=== PATIENT | female | born 1995 ===

== ENCOUNTER 2020-02-06 16:12 | Emergency (ER) | payer MEDICAID, SELFPAY ==
--- NOTE | 2020-02-06 16:34 | ED.URI ---
HPI - URI/Sore Throat General Chief Complaint: Upper Respiratory Symptoms Stated Complaint: Flu like Symptoms Time Seen by Provider: 02/06/20 16:34 Source: patient Mode of arrival: ambulatory Limitations: no limitations History of Present Illness HPI Narrative: States 3 days over in a rhinorrhea/congestion and body aches. No chest pain shortness of breath. No GI symptoms. No fever. MD elicited complaint: rhinorrhea and nasal congestion Onset (ago): day(s) (3) Severity: mild Able to tolerate fluids by mouth: Yes Exacerbating factors: nothing Relieving factors: nothing Associated symptoms: denies other symptoms Treatments prior to arrival: none Related Data Allergies Allergy/AdvReac Type Severity Reaction Status Date / Time No Known Allergies Allergy Unverified 12/01/19 18:45 [No Known Allergies*] Review of Systems Review of Systems: Constitutional: No Weight loss, No Fever, No Chills, No Night Sweats, No Fatigue, No Malaise ENT/Mouth: No Hearing loss, No Ear Pain, + Nasal Congestion, No Sinus Pain, No Hoarseness, No sore throat, + Rhinorrhea, No Swallowing Difficulty Eyes: No Eye Pain, No Swelling, No Redness, No Foreign Body, No Discharge, No Vision Changes Cardiovascular: No Chest Pain, No SOB, No Dyspnea on Exertion, No Orthopnea, No Edema, No Palpitations Respiratory: No Cough, No Sputum, No Wheezing, No Smoke Exposure, No Dyspnea Gastrointestinal: No Nausea, No Vomiting, No Diarrhea, No Constipation, No abdominal Pain, No Hematochezia, No Melena Genitourinary: no irregular bleeding, No Dysuria, No Urinary Frequency, No Hematuria, No Urinary Incontinence Musculoskeletal: No joint pain, No Myalgias, No Joint Swelling Skin: No Skin Lesions, No rash Neuro: No Weakness, No Numbness, No Paresthesias, No Loss of Consciousness, No Dizziness, No Headache Psych: No Social Issues Heme/Lymph: No Bruising, No Bleeding,No Lymphadenopathy Endocrine: No Polyuria, No Polydipsia, No Temperature Intolerance Yes all other systems are reviewed and are negative [facility] Past Medical History Medical History (Updated 02/06/20 @ 16:41 by Curtis Shahid NP) No known health problems Social History Social History Advance Directives: No Advance Directives Information Provided: Yes Physical Exam Vital Signs: Vital Signs: Reviewed Const: General: cooperative and healthy appearing; No acute distress or intoxicated appearing Nutritional Appearance: average body habitus Orientation/consciousness: patient oriented x3 HENMT: Head: Yes normal to inspection Ears: hearing grossly normal bilaterally General nose exam: Nasal discharge present clear Eyes: General: appearance normal, both eyes and all related structures Visual Chaudhari: normal visual chaudhari by confrontation Neck: Neck: Yes normal visual inspection and No tender Thyroid: Thyroid normal Chest: Chest palpation & inspection: normal inspection of the chest Resp: Effort & Inspection: normal respiratory effort Cardio: Jugular venous distension: no JVD GI: Inspection: Yes normal to inspection Percussion: Yes normal to percussion Auscultation: normal bowel sounds : General: Yes no CVA tenderness Back/Spine/Pelvis: Back: no CVA tenderness Skin: General skin exam: no rashes or lesions noted Neuro: General: patient oriented x3 Extrem: General: Yes normal to inspection Course Course Course Narrative: Well nontoxic appearing. Will test for COVID-19. Discharge Plan Discharge Clinical Impression: Upper respiratory infection Patient Disposition: Home, Self-Care Instructions: Viral Syndrome (ED) Additional Instructions: Drink plenty fluids Saltwater gargle Supportive care with Tylenol/Motrin per label instructions We have tested for COVID-19 this may take up to 3-5 days results will call you with results even if negative for positive In the meantime follow the CDC guidelines as discussed Return if any concerns or worsening symptoms Thank you Referrals: ED Physician,Generic [Physician] - 5 days
[2020-02-06 16:35] VITALS: BP 116/67; PULSE 85; TEMP 36.8; O2SAT 98; BMI 35.5
== END 2020-02-06 16:51 | disposition home or self-care (01) ==
PROVIDERS: Nurse Practitioner Primary Care; Emergency Provider Internal Medicine
DX: J06.9 Acute upper respiratory infection, unspecified (principal); M79.10 Myalgia, unspecified site; Z20.828 Contact with and (suspected) exposure to other viral communicable diseases
CPT/HCPCS: 99283; U0003

== ENCOUNTER 2021-03-05 11:54 | Outpatient (REF) | payer MEDICAID, SELFPAY | END 2021-03-05 11:55 | disposition home or self-care (01) | LOC: HO.LAB 11:54 | PROVIDERS: Visit Provider Internal Medicine | DX: Z20.822 Contact with and (suspected) exposure to COVID-19 (principal) | CPT/HCPCS: C9803; U0003; U0005 ==

== ENCOUNTER 2021-07-05 08:51 | Emergency (ER) | payer MEDICAID, SELFPAY ==
--- NOTE | ~2021-07-05 | US_ITS ---
EXAMINATION: US PELVIS CLINICAL INFORMATION: Right adnexal tenderness COMPARISON: Previous CT of the abdomen and pelvis from earlier the same day TECHNIQUE: Ultrasound of the pelvis is performed using both transabdominal and transvaginal transducers along with Doppler. Transvaginal imaging is performed due to inadequate visualization transabdominally. Ovarian Doppler exam with grayscale and color evaluation of the ovaries including waveform spectral analysis was also performed. FINDINGS: The uterus is anteverted and measures 8.5 x 4.4 x 5.2 cm in dimension. No focal uterine lesion is seen. The endometrium does not appear thickened. No focal uterine lesion is seen. The right ovary measures 4 x 2.7 3.7 cm. There is a 1.8 x 2.2 x 1.8 cm complex right ovarian cyst. The left ovary measures 3.6 x 3.1 x 3.9 cm. There is a 1.3 x 0.8 x 0.6 cm nonspecific hyperechoic area in the left ovary. There is a small amount of fluid in the pelvis. There is dependent hypoechoic material or debris seen in the bladder. There is a small amount of fluid in the pelvis. US/US pelvic ovarian doppler IMPRESSION: IUD in the uterus in satisfactory position. No evidence of torsion. 1.8 x 2.2 x 1.8 cm complex right ovarian cyst. 1.3 x 0.8 x 0.6 cm nonspecific hyperechoic area in the left ovary. Small amount of hypoechoic debris in the bladder.
--- NOTE | ~2021-07-05 | US_ITS ---
EXAMINATION: US PELVIS CLINICAL INFORMATION: Right adnexal tenderness COMPARISON: Previous CT of the abdomen and pelvis from earlier the same day TECHNIQUE: Ultrasound of the pelvis is performed using both transabdominal and transvaginal transducers along with Doppler. Transvaginal imaging is performed due to inadequate visualization transabdominally. Ovarian Doppler exam with grayscale and color evaluation of the ovaries including waveform spectral analysis was also performed. FINDINGS: The uterus is anteverted and measures 8.5 x 4.4 x 5.2 cm in dimension. No focal uterine lesion is seen. The endometrium does not appear thickened. No focal uterine lesion is seen. The right ovary measures 4 x 2.7 3.7 cm. There is a 1.8 x 2.2 x 1.8 cm complex right ovarian cyst. The left ovary measures 3.6 x 3.1 x 3.9 cm. There is a 1.3 x 0.8 x 0.6 cm nonspecific hyperechoic area in the left ovary. There is a small amount of fluid in the pelvis. There is dependent hypoechoic material or debris seen in the bladder. There is a small amount of fluid in the pelvis. US/US pelvic and transvaginal IMPRESSION: IUD in the uterus in satisfactory position. No evidence of torsion. 1.8 x 2.2 x 1.8 cm complex right ovarian cyst. 1.3 x 0.8 x 0.6 cm nonspecific hyperechoic area in the left ovary. Small amount of hypoechoic debris in the bladder.
--- NOTE | ~2021-07-05 | CT_ITS ---
EXAMINATION: CT ABDOMEN AND PELVIS WITHOUT CONTRAST CLINICAL INFORMATION: CVA tenderness. COMPARISON: None TECHNIQUE: Multidetector volumetric imaging was performed from the superior aspect of the liver through the pubic symphysis. Sagittal and coronal reformatted images were obtained on the technologist's workstation. Lack of intravenous and oral contrast limits visceral evaluation. This CT examination was performed using dose optimization techniques as appropriate, variously including the following: *Automated exposure control *Adjustment of mA and/or kV according to patient size (this includes techniques or standardized protocols for targeted exams where dose is matched to indication/reason for exam; i.e. extremities or head) *Use of iterative reconstruction technique DLP: 820.40 mGy-cm FINDINGS: LUNG BASES: The visualized lung bases are unremarkable. LIVER, GALLBLADDER, AND BILIARY TREE: Unremarkable. PANCREAS: Unremarkable. SPLEEN: Unremarkable. ADRENAL GLANDS: Unremarkable. KIDNEYS AND URETERS: Mild right ureterectasis and periureteral infiltrative changes are seen without obstructing abnormality. The left kidney and ureter are unremarkable. No nephrolithiasis bilaterally. BLADDER: Minimally distended limiting evaluation without focal abnormality. No significant intraluminal abnormality. GASTROINTESTINAL TRACT: Small hiatal hernia. No other gastric abnormality. The small bowel, appendix,: And rectum are unremarkable. ABDOMINAL WALL: No significant hernia is appreciated. LYMPH NODES: No lymphadenopathy. VASCULAR: Unremarkable. PELVIC VISCERA: IUD within the uterus without abnormality. No adnexal abnormality. OSSEOUS STRUCTURES: Unremarkable. CT/CT abdomen pelvis wo con IMPRESSION: 1. Mild right ureterectasis and periureteral stranding without obstructing abnormality. These findings could represent sequelae of a recently passed right renal calculus. No other significant abnormality. If the patient's symptoms persist or worsen, short-term follow-up with retroperitoneal ultrasound is recommended. 2. Small hiatal hernia. Fleischner guidelines were followed.
[2021-07-05 08:58] VITALS: BP 105/43; PULSE 88; RESP 18; TEMP 36; O2SAT 97; BMI 37.5
[2021-07-05 09:10] LABS: MANUAL DIFF FLAG NO
[2021-07-05 09:12] LABS: Basophils Percent Auto 0.1 % (0-2); Eosinophils Absolute Auto 0.1 X10*3/uL (0.0-0.4); Eosinophils Percent Auto 0.8 % (0-4); Hematocrit 38.4 % (37.0-47.0); Hemoglobin 12.8 g/dl (12.0-16.0); Imm Gran Abs Auto 0.05 X10*3/uL (0.00-0.03); Imm Gran Pct Auto 0.4 % (0.0-0.4); Lymphocytes Absolute Auto 2.1 X10*3/uL (1.2-4.9); Lymphocytes Percent Auto 15.3 % (20-40); Mean Corpuscular HGB Conc 33.3 g/dl (31.0-35.0); Mean Platelet Volume 10.7 fL (9.4-12.3); Monocytes Absolute Auto 1.1 X10*3/uL (0.1-1.2); Neutrophils Absolute Auto 10.1 x10*3/uL (2.0-8.3); Neutrophils Percent Auto 75.4 % (45-73); Platelet Count 289 X10*3/uL (160-400); Red Cell Distribution Width 12.3 % (11.0-16.0); White Blood Count 13.4 X10*3/uL (4.8-10.8)
[2021-07-05 09:22] VITALS: BP 98/48; PULSE 72; RESP 14; TEMP 36.9; O2SAT 98
[2021-07-05 09:29] LABS: Alanine Aminotransferase 15 U/L (0-31); Alkaline Phosphatase 54 U/L (39-117); Anion Gap 11 (12-20); Aspartate Amino Transferase 14 U/L (5-31); Bilirubin Total 1.5 mg/dL (0.0-1.0); Blood Urea Nitrogen 10 mg/dL (9-16); Calcium 9.1 mg/dL (8.4-10.2); Carbon Dioxide 26 mmol/L (22-29); Chloride 103 mmol/L (96-108); Creatinine Clr Calc Pharmacy 168.9; Estimated Glomerular Filt Rate > 60; Glucose Random 94 mg/dL (60-115); Potassium 4.1 mmol/L (3.3-5.1); Sodium 136 mmol/L (135-145); Total Protein 6.9 g/dL (6.5-8.0)
[2021-07-05 09:43] LABS: Appearance Urine CLOUDY; Color Urine DK YELLOW; Glucose Urine UA NEG (NEG); Leukocyte Esterase Urine 2+ (NEG); Nitrite Urine POS (NEG); PH 6.5 (5.0-8.0); Specific Gravity - Urine 1.025 (1.005-1.025); UACC Culture Trigger YES; Urine Blood 3+ (NEG); Urine Ketones NEG (NEG); Urine Protein 2+ MG/DL (NEG-TRACE)
[2021-07-05 09:54] LABS: Bacteria Urine 2+ /LPF; Mucus Urine 1+ /LPF; RBC Urine TNTC /HPF (0); Squamous Epithelial Cell Urine 1+ /LPF; WBC Urine TNTC /HPF (0-4)
[2021-07-05 10:09] LABS: UPreg QC Valid YES; Urine Pregnancy NEGATIVE (NEGATIVE)
--- NOTE | 2021-07-05 10:33 | ED.ABDPAIN ---
HPI - Abdominal Pain General Chief Complaint: Abdominal Pain Stated Complaint: Lower abd pain/back pain Time Seen by Provider: 07/05/21 10:32 Source: patient Mode of arrival: ambulatory Limitations: no limitations History of Present Illness HPI narrative: 26-year-old female presents for right lower abdomen pain that radiates to her right flank that started yesterday morning. She also has right lower pelvic pain and increased urinary frequency. States her urine has been foul smelling. No fevers, no abnormal vaginal bleeding, no abnormal vaginal discharge, no concerns for STDs. She has a copper IUD and is sexually active with no new partners. Last menstrual period was June 23 and was normal. No abdominal surgeries. States her pain is an 8/10 in her right pelvis and righ t back. Patient presented with a blood pressure of 98/48, her most recent blood pressure is 112/68. No dizziness, chest pain, shortness of breath. Related Data Previous Rx's Medication Instructions Recorded cefpodoxime 200 mg tablet 200 mg PO Q12H 10 Days #20 tab 07/05/21 ketorolac 10 mg tablet 10 mg PO TID 5 Days #15 tab 07/05/21 Allergies Allergy/AdvReac Type Severity Reaction Status Date / Time No Known Allergies Allergy Unverified 12/01/19 18:45 [No Known Allergies*] Review of Systems Constitutional: Denies body ache(s), Denies chills, Denies fatigue, Denies fever(s), Denies headache(s), Denies malaise and Denies weakness Eyes: Denies diplopia Denies vertigo, Denies dizziness, Denies otalgia, Denies headache(s), Denies mouth pain, Denies post nasal drip, Denies sinus pain, Denies sinus pressure, Denies sore throat and Denies throat swelling Cardiovascular: Denies chest pain, Denies syncope, Denies leg edema, Denies lightheadedness, Denies Loss of Consciousness, Denies palpitations and Denies dyspnea Respiratory: Denies chest congestion, Denies cough and Denies dyspnea Gastrointestinal: Reports abdominal pain, Denies hematochezia, Denies constipation, Denies diarrhea, Denies nausea and Denies vomiting Genitourinary: Denies abnormal vaginal bleeding, Denies dysmenorrhea, Denies dysuria, Reports pelvic pain, Reports flank pain, Denies urinary incontinence, Denies urinary hesitancy, Reports urinary urgency and Denies vaginal discharge Musculoskeletal: Reports no additional musculoskeletal complaints Denies confusion, Denies vertigo, Denies dizziness, Denies syncope, Denies headache(s) and Denies weakness Psychiatric: Denies anxiety, Denies confusion and Denies depression Endocrine: Denies fatigue and Denies palpitations Allergic/Immunologic: Denies throat swelling PMFSH Past Medical History Medical History (Updated 07/05/21 @ 14:50 by TEGAN Bradley) No known health problems Social History Social History Alcohol intake: never Patient Tobacco Use Status: Never used Tobacco Use of substances other than those prescribed or required for medical reasons: No Advance Directives: Yes Advance Directives Information Provided: Yes Advance Directives on File: No Patient : No Physical Exam ED Vital Signs: Vital Signs - 24 hr 07/05/21 08:58 07/05/21 09:22 07/05/21 11:20 Temperature 96.8 F 98.4 F 98.4 F Pulse Rate 88 72 75 Respiratory Rate 18 14 16 Blood Pressure 105/43 L 98/48 L 98/54 L Pulse Oximetry 97 98 99 07/05/21 13:32 07/05/21 14:03 Temperature 98 F Pulse Rate 70 78 Respiratory Rate 14 17 Blood Pressure 95/36 L 109/66 Pulse Oximetry 97 99 BMI result Body Mass Index 37.5 Const General: alert and awake; No confusion Nutritional Appearance: well nourished Orientation/consciousness: patient oriented x3 and No confusion Limitations: no limitations HENMT Head: Yes normal to inspection, Yes normocephalic and Yes atraumatic Ears: hearing grossly normal bilaterally General nose exam: Normal external nose present Face and sinus: Yes normal facial exam Mouth: Normal oral and palatal mucosa present Throat: Yes posterior oropharynx normal Eyes Pupils: Equal, round and reactive pupils present EOM: EOMs intact bilaterally Neck Neck: Yes normal visual inspection, Yes full ROM, Yes no lymphadenopathy, Yes no meningeal signs and Yes trachea midline Resp Effort & Inspection: normal respiratory effort and able to speak in complete sentences Auscultation: clear to auscultation bilaterally, no crackles, no rales, no rhonchi and no wheezes Cardio Rate: regular rate Rhythm: regular rhythm Heart sounds: S1 normal heart sound present and S2 normal heart sound present GI Inspection: Yes normal to inspection Palpation (GI): Soft to palpation, not firm, Tenderness to palpation present (GI), no guarding and not rigid Percussion: Yes normal to percussion Auscultation: normal bowel sounds General: Yes CVA tenderness on the right External Female Exam: normal external appearance and normal appearance of the urethra Speculum Exam - Vagina: normal appearance of the vagina Speculum Exam - Cervix: normal appearance of the cervix and normal palpation Bimanual exam- vagina & uterus: normal palpation Bimanual Exam- Adnexa, other: tender on the right Back/Spine/Pelvis Back: CVA tenderness Skin General skin exam: no rashes or lesions noted Neuro General: patient oriented x3, no meningeal signs and No confusion Cranial nerves: Yes Equal, round and reactive pupils present Extrem General: Yes normal to inspection, Yes full ROM and Yes capillary refill normal Psych Appearance: grossly normal Mental Status: mental status grossly normal Speech and movement: Normal speech and movement present Affect: normal affect Course Course Course Narrative: 26-year-old female presents with right lower abdominal pain, right-sided pelvic pain, and right-sided flank pain that started last night. Patient is also had increased urinary frequency . On exam, patient is stable vitals, initially low blood pressure, blood pressure during my exam was 112/68. Patient has right CVA tenderness, mild right lower quadrant tenderness but no guarding, and is very tender in her right adnexa. No cervical motion tenderness. Cervix is normal in appearance. Vaginal discharges whitish green. Will get noncontrast CT rule out kidney stone, ultrasound pelvis rule out torsion or adnexal pathology, got BV, Trichomonas, gonorrhea and chlamydia swabs, urine, labs Reevaluation(s) Reevaluation #1: Patient has a leukocytosis of 13.4, infected urine, she is not . Patient is COVID positive. CT shows evidence of possibly recently passed right kidney stone. Patient has stable vitals. Gave dose of ceftriaxone. Awaiting ultrasound results. Patient's blood pressure is charted at 95/36. Concern for sepsis, got lactic and blood cultures. Nurse had patient uncross her legs and we took blood pressure, blood pressure is now 110/66 with a map of 80. Will await lactic to determine if we need to do sepsis bolus. I have already started antibiotics. Ultrasound shows complex right ovarian cyst. CT/CT abdomen pelvis wo con IMPRESSION: 1. Mild right ureterectasis and periureteral stranding without obstructing abnormality. These findings could represent sequelae of a recently passed right renal calculus. No other significant abnormality. If the patient's symptoms persist or worsen, short-term follow-up with retroperitoneal ultrasound is recommended. 2. Small hiatal hernia. US/US pelvic and transvaginal IMPRESSION: IUD in the uterus in satisfactory position. No evidence of torsion. 1.8 x 2.2 x 1.8 cm complex right ovarian cyst. 1.3 x 0.8 x 0.6 cm nonspecific hyperechoic area in the left ovary. Small amount of hypoechoic debris in the bladder. Reevaluation #2: 1:44 pm Patient's pressure is low by chart, 96/35, although when I was in the room pressure was 112/68. Current map is only 61. Will get blood cultures, lactate, started bolus for sepsis. MDM - Abdominal Pain Lab Data Result diagrams: 07/05/21 09:05 07/05/21 09:05 Labs: Lab Results 07/05/21 07/05/21 07/05/21 Range/Units 09:05 09:05 09:25 WBC 13.4 H (4.8-10.8) X10*3/uL RBC 4.00 L (4.20-5.50) X10*6/uL Hgb 12.8 (12.0-16.0) g/dl Hct 38.4 (37.0-47.0) % MCV 96.0 (80.0-98.0) fL MCH 32.0 (27.0-33.0) pg MCHC 33.3 (31.0-35.0) g/dl RDW 12.3 (11.0-16.0) % Plt Count 289 (160-400) X10*3/uL MPV 10.7 (9.4-12.3) fL Immature Gran % (Auto) 0.4 (0.0-0.4) % Neut % (Auto) 75.4 H (45-73) % Lymph % (Auto) 15.3 L (20-40) % [place] % (Auto) 8.0 (2-11) % Eos % (Auto) 0.8 (0-4) % Baso % (Auto) 0.1 (0-2) % Lymph # (Auto) 2.1 (1.2-4.9) X10*3/uL [place] # (Auto) 1.1 (0.1-1.2) X10*3/uL Eos # (Auto) 0.1 (0.0-0.4) X10*3/uL Baso # (Auto) 0.0 (0.0-0.2) X10*3/uL Abs Immat Gran (auto) 0.05 H (0.00-0.03) X10*3/uL Absolute Neuts (auto) 10.1 H (2.0-8.3) x10*3/uL Absolute Nucleated RBC 0.000 (0.0-0.012) X10*3/uL Nucleated RBC % (auto) 0.0 (0.0-0.2) /100WBC Sodium 136 (135-145) mmol/L Potassium 4.1 (3.3-5.1) mmol/L Chloride 103 (96-108) mmol/L Carbon Dioxide 26 (22-29) mmol/L Anion Gap 11 L (12-20) BUN 10 (9-16) mg/dL Creatinine 0.63 (0.5-1.4) mg/dL Estim Creat Clear Calc 168.9 Estimated GFR > 60 Random Glucose 94 (60-115) mg/dL Lactic Acid (0.5-2.0) mmol/L Calcium 9.1 (8.4-10.2) mg/dL Total Bilirubin 1.5 H (0.0-1.0) mg/dL AST 14 (5-31) U/L ALT 15 (0-31) U/L Alkaline Phosphatase 54 (39-117) U/L Total Protein 6.9 (6.5-8.0) g/dL Albumin 4.0 (3.5-5.0) g/dL Urine Color DK YELLOW Urine Appearance CLOUDY Urine pH 6.5 (5.0-8.0) Ur Specific [place] 1.025 (1.005-1.025) Urine Protein 2+ H (NEG-TRACE) MG/DL Urine Glucose (UA) NEG (NEG) MG/DL Urine Ketones NEG (NEG) MG/DL Urine Blood 3+ H (NEG) Urine Nitrite POS H (NEG) Ur Leukocyte Esterase 2+ H (NEG) Urine RBC TNTC H (0) /HPF Urine WBC TNTC H (0-4) /HPF Ur Squamous Epith Cells 1+ /LPF Urine Bacteria 2+ /LPF Urine Mucus 1+ /LPF Urine Test (NEGATIVE) 07/05/21 07/05/21 Range/Units 09:25 13:57 WBC (4.8-10.8) X10*3/uL RBC (4.20-5.50) X10*6/uL Hgb (12.0-16.0) g/dl Hct (37.0-47.0) % MCV (80.0-98.0) fL MCH (27.0-33.0) pg MCHC (31.0-35.0) g/dl RDW (11.0-16.0) % Plt Count (160-400) X10*3/uL MPV (9.4-12.3) fL Immature Gran % (Auto) (0.0-0.4) % Neut % (Auto) (45-73) % Lymph % (Auto) (20-40) % [place] % (Auto) (2-11) % Eos % (Auto) (0-4) % Baso % (Auto) (0-2) % Lymph # (Auto) (1.2-4.9) X10*3/uL [place] # (Auto) (0.1-1.2) X10*3/uL Eos # (Auto) (0.0-0.4) X10*3/uL Baso # (Auto) (0.0-0.2) X10*3/uL Abs Immat Gran (auto) (0.00-0.03) X10*3/uL Absolute Neuts (auto) (2.0-8.3) x10*3/uL Absolute Nucleated RBC (0.0-0.012) X10*3/uL Nucleated RBC % (auto) (0.0-0.2) /100WBC Sodium (135-145) mmol/L Potassium (3.3-5.1) mmol/L Chloride (96-108) mmol/L Carbon Dioxide (22-29) mmol/L Anion Gap (12-20) BUN (9-16) mg/dL Creatinine (0.5-1.4) mg/dL Estim Creat Clear Calc Estimated GFR Random Glucose (60-115) mg/dL Lactic Acid 0.9 (0.5-2.0) mmol/L Calcium (8.4-10.2) mg/dL Total Bilirubin (0.0-1.0) mg/dL AST (5-31) U/L ALT (0-31) U/L Alkaline Phosphatase (39-117) U/L Total Protein (6.5-8.0) g/dL Albumin (3.5-5.0) g/dL Urine Color Urine Appearance Urine pH (5.0-8.0) Ur Specific [place] (1.005-1.025) Urine Protein (NEG-TRACE) MG/DL Urine Glucose (UA) (NEG) MG/DL Urine Ketones (NEG) MG/DL Urine Blood (NEG) Urine Nitrite (NEG) Ur Leukocyte Esterase (NEG) Urine RBC (0) /HPF Urine WBC (0-4) /HPF Ur Squamous Epith Cells /LPF Urine Bacteria /LPF Urine Mucus /LPF Urine Test NEGATIVE (NEGATIVE) Discharge Plan Discharge Clinical Impression: COVID, Kidney stone, UTI (urinary tract infection), Ovarian cyst Patient Disposition: Home, Self-Care Instructions: Ovarian Cyst (ED), Kidney Stones (ED), Urinary Tract Infection in Women (ED), COVID-19 (Coronavirus Disease 2019) (ED) Additional Instructions: please call [phone] Urology, for follow-up appointment from today's emergency room visit. It appears you have passed a stone today and you infected urine. Please nut picker your antibiotic, and take it as prescribed. I have prescribed pain medication, please take that for the next 5 days. Please do not take any ibuprofen containing medicine for the next 5 days You also have COVID. Please remain mast, quarantine at home, and buy a pulse oximeter to make sure your oxygen saturation is remaining above 90%. If you have chest pain, shortness of breath, please return to emergency room. Please alternate Tylenol and ibuprofen for fever. In addition you have a right ovarian cyst. Please follow-up with your primary care provider. I have referred you to [facility], I would like you to contact them for follow-up of your ovarian cyst. llame al [phone] Urolog?a, para selin jonathan de seguimiento de la visita a la brenda de emergencias de hoy. Parece que vaz expulsado un c?lculo hoy y vaz infectado la orina. Recoja celis antibi?terra y t?verdugo seg?n lo prescrito. Le he recetado analg?sicos, t?melos moises los pr?ximos 5 d?as. No tome payal?n medicamento que contenga ibuprofeno moises los pr?ximos 5 d?as. Tambi?n tienes COVID. Permanezca en reposo, lazaro cuarentena en casa y compre un ox?metro de pulso para asegurarse de que celis saturaci?n de ox?adilson se mantenga por encima del 90%. Si tiene dolor en el pecho, dificultad para respirar, regrese a la brenda de emergencias. Alterne Tylenol e ibuprofeno para la fiebre. Adem?s tienes un quiste en el ovario derecho. Por favor, lazaro un seguimiento con celis proveedor de atenci?n primaria. La he derivado al [facility], me gustar?a que se comunique con ellos para el seguimiento de celis quiste ov?rico. Prescriptions: New cefpodoxime 200 mg tablet 200 mg PO Q12H 10 Days Qty: 20 0RF Rx Instructions: must administer with a meal/food ketorolac 10 mg tablet 10 mg PO TID 5 Days Qty: 15 0RF Referrals: [facility] [Provider Group] (needs PCP) Drew Steven MD [Physician] - Print Language: Urdu
[2021-07-05 11:20] VITALS: BP 98/54; PULSE 75; RESP 16; TEMP 36.9; O2SAT 99
[2021-07-05 13:32] VITALS: BP 95/36; PULSE 70; RESP 14; O2SAT 97
--- NOTE | 2021-07-05 13:46 | PC.NURSE ---
Ceftriaxone started late due to blood cultures needing to be drawn
--- NOTE | 2021-07-05 14:02 | PC.NURSE ---
Per TEGAN Dixon hold hold fluids until lactic results are back. Will follow up with TEGAN
[2021-07-05 14:03] VITALS: BP 109/66; PULSE 78; RESP 17; TEMP 36.6; O2SAT 99
[2021-07-05 14:14] LABS: Lactic Acid 0.9 mmol/L (0.5-2.0)
[2021-07-05 15:02] LABS: CT PCR NOT DETECTED (Not Detect.); NG PCR NOT DETECTED (Not Detect.)
[2021-07-05] MEDS: Ketorolac Tromethamine 30 MG/ML VIAL IVPUSH (15:05)
--- NOTE | 2021-07-05 15:05 | PC.NURSE ---
PA held Morphine and Ceftriaxone. Patient being discharged.
== END 2021-07-05 15:28 | disposition home or self-care (01) ==
PROVIDERS: Physician Assistant; Emergency Provider Emergency Medicine Emergency Medical Services
DX: U07.1 COVID-19 (principal); N20.0 Calculus of kidney; N83.201 Unspecified ovarian cyst, right side; N39.0 Urinary tract infection, site not specified; M54.50 Low back pain, unspecified; R10.9 Unspecified abdominal pain; R35.0 Frequency of micturition; R10.2 Pelvic and perineal pain; Z79.899 Other long term (current) drug therapy
CPT/HCPCS: 36415; 74176; 76830; 76856; 80053; 81001; 81025; 83605; 85025; 87040; 87086; 87088; 87186; 87480; 87491; 87510; 87591; 87660; 93975; 96361; 96365; 96375; 99284; 99285; J1885; J2270

== ENCOUNTER 2021-10-17 11:56 | Emergency (ER) | payer MEDICAID, SELFPAY ==
[2021-10-17 12:01] VITALS: BMI 35.2
[2021-10-17 12:02] VITALS: BP 97/56; PULSE 56; RESP 18; TEMP 37.1; O2SAT 95; BMI 35.2
--- NOTE | 2021-10-17 12:02 | ECG_ITS ---
Test Reason : cp Blood Pressure : / mmHG Vent. Rate : 065 BPM Atrial Rate : 065 BPM P-R Int : 114 ms QRS Dur : 084 ms QT Int : 364 ms P-R-T Axes : 011 052 061 degrees QTc Int : 378 ms Normal sinus rhythm with sinus arrhythmia Normal ECG No previous ECGs available Referred By: Generic ED Physician Electronically Signed By:MULUGETA GARLAND MD
--- NOTE | 2021-10-17 12:22 | ED.CHESTPAIN ---
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 Patient states that she was in a somewhat poorly ventilated area and this chest pain started. Patient denies any dizziness, lightheadedness, abdominal pain, nausea, vomiting, fever, chills, blurry vision, double vision, loss of vision, difficulty breathing, shortness of breath, back pain, night sweats, pain with urination, increased urinary frequency, increased urinary urgency, blood in her urine or stool, syncope or a near syncopal episode, recent trauma or falls, bowel incontinence, bladder incontinence, bowel retention, bladder retention, or any other complaints at this time.? MD complaint: chest pain Pain radiation: none Severity: mild Pain scale (0-10): 2 Quality: burning Relieving factors: nothing Exacerbating factors: nothing Treatment prior to arrival: none Risk Factors Coronary artery disease risk factors: none Thoracic aortic dissection risk factors: none Related Data Previous Rx's Medication Instructions Recorded cefpodoxime 200 mg tablet 200 mg PO Q12H 10 days #20 tabs 07/05/21 ketorolac 10 mg tablet 10 mg PO TID pain 5 days #15 tabs 07/05/21 Allergies Allergy/AdvReac Type Severity Reaction Status Date / Time No Known Allergies Allergy Unverified 12/01/19 18:45 [No Known Allergies*] Review of Systems Constitutional: Constitutional: Reports no additional constitutional complaints, Denies chills, Denies fever(s) and Denies night sweats Eyes: Eyes: Reports no additional eye complaints, Denies blurry vision, Denies change in vision, Denies diplopia, Denies eye discharge, Denies loss of vision and Denies eye pain ENT: Denies dizziness Cardiovascular: Cardiovascular: Reports no additional cardiovascular complaints, Reports chest pain, Denies lightheadedness, Denies Loss of Consciousness and Denies dyspnea Respiratory: Respiratory: Reports no additional respiratory complaints and Denies dyspnea Gastrointestinal: Gastrointestinal: Reports no additional gastrointestinal complaints, Denies abdominal pain, Denies melena, Denies hematochezia, Denies change in bowel habits and Denies change in stool character Genitourinary: Genitourinary: Denies hematuria, Denies urinary frequency, Denies dysuria, Denies urinary incontinence, Denies urinary hesitancy and Denies urinary urgency Musculoskeletal: Musculoskeletal: Reports no additional musculoskeletal complaints, Denies numbness and Denies tingling Neurologic: Denies dizziness, Denies loss of vision, Denies numbness and Denies tingling Psychiatric: Psychiatric: Reports no additional psychiatric complaints Endocrine: Endocrine: Reports no additional endocrine complaints Hematologic/Lymphatic: Hematologic/Lymphatic: Reports no additional hematologic/lymphatic complaints Allergic/Immunologic: Allergic/Immunologic: Reports no additional allergic/immunologic complaints [facility] Past Medical History Attestation statement: The following information was validated with the patient. Source: old records reviewed Medical History No known health problems Social History Social History Alcohol intake: never Patient Tobacco Use Status: Never used Tobacco Use of substances other than those prescribed or required for medical reasons: No Advance Directives: No Advance Directives Information Provided: No Physical Exam Vital Signs: Vital Signs: Last Vital Signs Temp 98.8 F 10/17/21 12:02 Pulse 60 10/17/21 12:56 Resp 15 10/17/21 12:56 BP 97/56 L 10/17/21 12:02 Pulse Ox 99 10/17/21 12:56 O2 Del Method 10/17/21 12:56 BMI result Body Mass Index 35.2 Const: General: cooperative, no acute distress, alert and awake Nutritional Appearance: well nourished Orientation/consciousness: patient oriented x3 Limitations: no limitations HEENT: Head: Yes normal to inspection and Yes atraumatic Ears: hearing grossly normal bilaterally and external ears normal General nose exam: Normal external nose present, no nasal discharge noted and no epistaxis Face and sinus: Yes normal facial exam, No abrasion and No laceration Mouth: Normal oral and palatal mucosa present, no drooling and no muffled voice Eyes: General: appearance normal, both eyes and all related structures Periorbital: periorbital findings normal Eyelids: Yes eyelids normal Conjunctivae: conjunctivae normal Pupils: Equal, round and reactive pupils present EOM: EOMs intact bilaterally Neck: Neck: Yes normal visual inspection, Yes full ROM and Yes no lymphadenopathy Chest: Chest palpation & inspection: normal inspection of the chest Resp: Effort & Inspection: normal respiratory effort and able to speak in complete sentences Auscultation: clear to auscultation bilaterally Cardio: Rate: regular rate Rhythm: regular rhythm GI: Inspection: Yes normal to inspection Neuro: General: patient oriented x3 and moves all extremities Cranial nerves: Yes Equal, round and reactive pupils present Cognition (Neuro): normal cognition Motor exam (neuro): 5/5 motor strength present throughout Sensory Exam: Normal double simultaneous stimulation for sensation Coordination: [id number] test normal Extrem: General: Yes normal to inspection, Yes full ROM and Yes capillary refill normal Psych: Appearance: grossly normal Mental Status: mental status grossly normal Affect: normal affect Attitude: cooperative Thought process: Normal thought process present Thought content: Normal thought content present Insight: Good insight present (Psych) MDM - Chest Pain MDM Narrative Medical decision making narrative: Patient is a 26 year old female presenting to the emergency department today with chest pain. Patient's physical exam was unremarkable. Patient's blood work was unremarkable. Patient's EKG was unremarkable. I explained my physical exam findings as well as all test results to the patient. I answered all questions asked by the patient. I stressed the importance of the patient taking her medication as prescribed. I stressed the importance of the patient following up with her primary care provider. I stressed the importance of the patient returning to the emergency department immediately if her symptoms were to worsen or if she were to develop any dizziness, shortness of breath, difficulty breathing, chest pain, blurry vision, loss of vision, nausea, vomiting, abdominal pain, fever, chills, back pain, or any other complaints. Patient verbalized agreement and understanding with this treatment plan and discharge. Differential Diagnosis Differential diagnosis: Likely atypical chest pain and costochondritis Medical Records Data Attestation: I reviewed the patient's medical records. Lab Data Attestation: I reviewed the patient's lab results. Result diagrams: 10/17/21 12:28 10/17/21 12:28 Labs: Lab Results 10/17/21 10/17/21 10/17/21 Range/Units 12:28 12:28 12:28 WBC 7.4 (4.8-10.8) X10*3/uL RBC 4.00 L (4.20-5.50) X10*6/uL Hgb 12.9 (12.0-16.0) g/dl Hct 37.7 (37.0-47.0) % MCV 94.3 (80.0-98.0) fL MCH 32.3 (27.0-33.0) pg MCHC 34.2 (31.0-35.0) g/dl RDW 12.1 (11.0-16.0) % Plt Count 297 (160-400) X10*3/uL MPV 10.7 (9.4-12.3) fL Immature Gran % (Auto) 0.3 (0.0-0.4) % Neut % (Auto) 56.5 (45-73) % Lymph % (Auto) 31.9 (20-40) % Lassen % (Auto) 8.4 (2-11) % Eos % (Auto) 2.4 (0-4) % Baso % (Auto) 0.5 (0-2) % Lymph # (Auto) 2.4 (1.2-4.9) X10*3/uL Lassen # (Auto) 0.6 (0.1-1.2) X10*3/uL Eos # (Auto) 0.2 (0.0-0.4) X10*3/uL Baso # (Auto) 0.0 (0.0-0.2) X10*3/uL Abs Immat Gran (auto) 0.02 (0.00-0.03) X10*3/uL Absolute Neuts (auto) 4.2 (2.0-8.3) x10*3/uL Absolute Nucleated RBC 0.000 (0.0-0.012) X10*3/uL Nucleated RBC % (auto) 0.0 (0.0-0.2) /100WBC Sodium 139 (135-145) mmol/L Potassium 4.1 (3.3-5.1) mmol/L Chloride 103 (96-108) mmol/L Carbon Dioxide 27 (22-29) mmol/L Anion Gap 13 (12-20) BUN 13 (9-16) mg/dL Creatinine 0.75 (0.5-1.4) mg/dL Estim Creat Clear Calc 137.1 Estimated GFR > 60 Random Glucose 88 (60-115) mg/dL Calcium 9.4 (8.4-10.2) mg/dL Magnesium 1.7 (1.6-2.6) mg/dL Total Bilirubin 1.5 H (0.0-1.0) mg/dL AST 15 (5-31) U/L ALT 16 (0-31) U/L Alkaline Phosphatase 55 (39-117) U/L Troponin I High Sens < 3.5 (<3.5-17.0) ng/L Total Protein 7.2 (6.5-8.0) g/dL Albumin 4.2 (3.5-5.0) g/dL Beta HCG, Quant mIU/mL 10/17/21 Range/Units 13:16 WBC (4.8-10.8) X10*3/uL RBC (4.20-5.50) X10*6/uL Hgb (12.0-16.0) g/dl Hct (37.0-47.0) % MCV (80.0-98.0) fL MCH (27.0-33.0) pg MCHC (31.0-35.0) g/dl RDW (11.0-16.0) % Plt Count (160-400) X10*3/uL MPV (9.4-12.3) fL Immature Gran % (Auto) (0.0-0.4) % Neut % (Auto) (45-73) % Lymph % (Auto) (20-40) % Lassen % (Auto) (2-11) % Eos % (Auto) (0-4) % Baso % (Auto) (0-2) % Lymph # (Auto) (1.2-4.9) X10*3/uL Lassen # (Auto) (0.1-1.2) X10*3/uL Eos # (Auto) (0.0-0.4) X10*3/uL Baso # (Auto) (0.0-0.2) X10*3/uL Abs Immat Gran (auto) (0.00-0.03) X10*3/uL Absolute Neuts (auto) (2.0-8.3) x10*3/uL Absolute Nucleated RBC (0.0-0.012) X10*3/uL Nucleated RBC % (auto) (0.0-0.2) /100WBC Sodium (135-145) mmol/L Potassium (3.3-5.1) mmol/L Chloride (96-108) mmol/L Carbon Dioxide (22-29) mmol/L Anion Gap (12-20) BUN (9-16) mg/dL Creatinine (0.5-1.4) mg/dL Estim Creat Clear Calc Estimated GFR Random Glucose (60-115) mg/dL Calcium (8.4-10.2) mg/dL Magnesium (1.6-2.6) mg/dL Total Bilirubin (0.0-1.0) mg/dL AST (5-31) U/L ALT (0-31) U/L Alkaline Phosphatase (39-117) U/L Troponin I High Sens (<3.5-17.0) ng/L Total Protein (6.5-8.0) g/dL Albumin (3.5-5.0) g/dL Beta HCG, Quant < 2 mIU/mL ECG Data ECG #1: Attestation: I personally reviewed and interpreted this ECG as follows: ECG interpretation date: 10/17/21 ECG interpretation time: 12:02 Prior ECG tracings: not available for review Interpretation: Vent. Rate: 065 BPM ? ? Atrial Rate: 065 BPM P-R Int: 114 ms? QRS Dur: 084 ms QT Int: 364 ms ? ? ? P-R-T Axes: 011 052 061 degrees QTc Int: 378 ms ? Normal sinus rhythm with sinus arrhythmia Normal ECG No previous ECGs available DD/ 1202 Discharge Plan Discharge Clinical Impression: Atypical chest pain Patient Disposition: Home, Self-Care Instructions: Chest Wall Pain (ED) Additional Instructions: Follow up with your primary care provider. Return to the emergency department immediately if your symptoms worsen or if you develop any dizziness, shortness of breath, difficulty breathing, chest pain, blurry vision, loss of vision, nausea, vomiting, abdominal pain, fever, chills, back pain, or any other complaints. Prescriptions: No Action cefpodoxime 200 mg tablet 200 mg PO Q12H 10 Days Qty: 20 0RF Rx Instructions: must administer with a meal/food ketorolac 10 mg tablet 10 mg PO TID 5 Days Qty: 15 0RF Referrals: [facility] [Primary Care Provider] - Stand Alone Forms: Work/School Release Interventions: ED Discharge Assessment Last Done: 10/17/21 14:56 Discharge Date/Time: 10/17/21 14:57 Print Language: Chinese
[2021-10-17 12:32] LABS: MANUAL DIFF FLAG NO
[2021-10-17 12:33] LABS: Basophils Percent Auto 0.5 % (0-2); Eosinophils Absolute Auto 0.2 X10*3/uL (0.0-0.4); Eosinophils Percent Auto 2.4 % (0-4); Hematocrit 37.7 % (37.0-47.0); Hemoglobin 12.9 g/dl (12.0-16.0); Imm Gran Abs Auto 0.02 X10*3/uL (0.00-0.03); Imm Gran Pct Auto 0.3 % (0.0-0.4); Lymphocytes Absolute Auto 2.4 X10*3/uL (1.2-4.9); Lymphocytes Percent Auto 31.9 % (20-40); Mean Corpuscular HGB Conc 34.2 g/dl (31.0-35.0); Mean Corpuscular Hemoglobin 32.3 pg (27.0-33.0); Mean Corpuscular Volume 94.3 fL (80.0-98.0); Mean Platelet Volume 10.7 fL (9.4-12.3); Monocytes Absolute Auto 0.6 X10*3/uL (0.1-1.2); Monocytes Percent Auto 8.4 % (2-11); Neutrophils Absolute Auto 4.2 x10*3/uL (2.0-8.3); Neutrophils Percent Auto 56.5 % (45-73); Platelet Count 297 X10*3/uL (160-400); Red Cell Distribution Width 12.1 % (11.0-16.0); White Blood Count 7.4 X10*3/uL (4.8-10.8)
[2021-10-17] MEDS: Ondansetron ODT 4 MG TAB.RAPDIS TRANSLINGU (12:55)
[2021-10-17 12:56] VITALS: PULSE 60; RESP 15; O2SAT 99
[2021-10-17 12:58] LABS: Alanine Aminotransferase 16 U/L (0-31); Albumin Level 4.2 g/dL (3.5-5.0); Alkaline Phosphatase 55 U/L (39-117); Anion Gap 13 (12-20); Aspartate Amino Transferase 15 U/L (5-31); Bilirubin Total 1.5 mg/dL (0.0-1.0); Blood Urea Nitrogen 13 mg/dL (9-16); Calcium 9.4 mg/dL (8.4-10.2); Carbon Dioxide 27 mmol/L (22-29); Chloride 103 mmol/L (96-108); Creatinine Clr Calc Pharmacy 137.1; Estimated Glomerular Filt Rate > 60; Glucose Random 88 mg/dL (60-115); Magnesium 1.7 mg/dL (1.6-2.6); Potassium 4.1 mmol/L (3.3-5.1); Sodium 139 mmol/L (135-145); Total Protein 7.2 g/dL (6.5-8.0); Troponin-I High Sensitivity < 3.5 ng/L (<3.5-17.0)
[2021-10-17 13:43] LABS: HCG Quantitative < 2 mIU/mL
== END 2021-10-17 14:57 | disposition home or self-care (01) ==
PROVIDERS: Physician Assistant Medical; Emergency Provider Emergency Medicine
DX: R07.89 Other chest pain (principal)
CPT/HCPCS: 36415; 80053; 83735; 84484; 84702; 85025; 93005; 99283; 99285

== ENCOUNTER 2023-05-19 01:21 | Emergency (ER) | payer MEDICAID, SELFPAY ==
--- NOTE | ~2023-05-19 | CT_ITS ---
EXAMINATION: CT HEAD WITHOUT CONTRAST CLINICAL INFORMATION: Headache COMPARISON: 05/17/2018 TECHNIQUE: Contiguous axial imaging was performed from the skull base to vertex without intravenous administration of contrast. This CT examination was performed using dose optimization techniques as appropriate, variously including the following: *Automated exposure control *Adjustment of mA and/or kV according to patient size (this includes techniques or standardized protocols for targeted exams where dose is matched to indication/reason for exam; i.e. extremities or head) *Use of iterative reconstruction technique DLP: 625 mGy-cm FINDINGS: There is no evidence of acute intracranial hemorrhage or territorial infarction. No abnormal mass-effect or midline shift is seen. Carty to white matter differentiation is well preserved. No extra-axial fluid collections are identified. The ventricles are normal in size. There is no abnormal attenuation within the brain parenchyma. The osseous structures and soft tissues are normal. The mastoid air cells and visualized portions of the paranasal sinuses are well-aerated. CT/CT head/brain wo IV con IMPRESSION: No acute intracranial pathology.
[2023-05-19 01:42] VITALS: BP 112/58; PULSE 65; RESP 19; TEMP 36.4; O2SAT 98; BMI 36.2
[2023-05-19 01:58] LABS: Basophils Percent Auto 0.4 % (0-2); Eosinophils Absolute Auto 0.2 X10*3/uL (0.0-0.4); Eosinophils Percent Auto 2.3 % (0-4); Hematocrit 37.9 % (37.0-47.0); Imm Gran Abs Auto 0.02 X10*3/uL (0.00-0.03); Imm Gran Pct Auto 0.2 % (0.0-0.4); Lymphocytes Absolute Auto 3.3 X10*3/uL (1.2-4.9); Lymphocytes Percent Auto 34.7 % (20-40); MANUAL DIFF FLAG NO; Mean Corpuscular HGB Conc 34.3 g/dl (31.0-35.0); Mean Corpuscular Hemoglobin 32.4 pg (27.0-33.0); Mean Corpuscular Volume 94.5 fL (80.0-98.0); Mean Platelet Volume 10.7 fL (9.4-12.3); Monocytes Absolute Auto 0.6 X10*3/uL (0.1-1.2); Monocytes Percent Auto 6.7 % (2-11); Neutrophils Absolute Auto 5.3 x10*3/uL (2.0-8.3); Neutrophils Percent Auto 55.7 % (45-73); Platelet Count 336 X10*3/uL (160-400); Red Blood Count 4.01 X10*6/uL (4.20-5.50); Red Cell Distribution Width 11.9 % (11.0-16.0); White Blood Count 9.4 X10*3/uL (4.8-10.8)
[2023-05-19 02:18] LABS: COVID-19 Test Negative (Negative); IDNOW Serial# 08D9AD1C; IDNOW Serial# 152EDE1D; Influenza A Negative (Negative); Influenza B2 Negative (Negative)
[2023-05-19 02:23] LABS: Alanine Aminotransferase 19 U/L (0-31); Albumin Level 3.9 g/dL (3.5-5.0); Alkaline Phosphatase 52 U/L (39-117); Anion Gap 11 (12-20); Aspartate Amino Transferase 18 U/L (5-31); Bilirubin Direct 0.3 mg/dL (0.0-0.5); Bilirubin Total 0.8 mg/dL (0.0-1.0); Blood Urea Nitrogen 16 mg/dL (9-16); Calcium 9.4 mg/dL (8.4-10.2); Carbon Dioxide 24 mmol/L (22-29); Chloride 105 mmol/L (96-108); Estimated Glomerular Filt Rate > 60; Glucose Random 108 mg/dL (60-115); HCG Quantitative < 2 mIU/mL; Potassium 3.5 mmol/L (3.3-5.1); Sodium 136 mmol/L (135-145); Total Protein 7.2 g/dL (6.5-8.0)
[2023-05-19] MEDS: 0.9 % Sodium Chloride 1,000 ML 999 ML IV (03:16)
--- NOTE | 2023-05-19 03:17 | ED_ITS ---
HPI - Headache General Chief Complaint: Headache Stated Complaint: Headache Time Seen by Provider: 05/19/23 02:57 Source: patient Mode of arrival: ambulatory Limitations: no limitations History of Present Illness HPI Narrative: 27-year-old female came in for 2 months intermittent headache that is becoming now every day, pain is intermittent, no relieving factor, no aggravating factor, no trigger factors, no known family history of intracranial bleed or tumor or migraines. Describes headache as mostly affecting left side of the face. No fever, no chills, no photophobia, no blurry vision. Related Data Previous Rx's Medication Instructions Recorded cefpodoxime 200 mg tablet 200 mg PO Q12H 10 days #20 tabs 07/05/21 ketorolac 10 mg tablet 10 mg PO TID pain 5 days #15 tabs 07/05/21 Allergies Allergy/AdvReac Type Severity Reaction Status Date / Time No Known Allergies Allergy Verified 05/19/23 01:42 [No Known Allergies*] Review of Systems 2 Review of Systems: All other systems are reviewed and are negative Constitutional: Reports as per HPI and Reports no additional constitutional complaints Eyes: Reports as per HPI and Reports no additional eye complaints Reports system reviewed and no additional complaints, except as documented Cardiovascular: Reports as per HPI and Reports no additional cardiovascular complaints Respiratory: Reports as per HPI and Reports no additional respiratory complaints Gastrointestinal: Reports as per HPI and Reports no additional gastrointestinal complaints Genitourinary: Reports no additional female genitourinary complaints Musculoskeletal: Reports no additional musculoskeletal complaints Skin/Breast: Reports system reviewed and no additional complaints, except as docu Psychiatric: Reports no additional psychiatric complaints Endocrine: Reports no additional endocrine complaints Hematologic/Lymphatic: Reports no additional hematologic/lymphatic complaints Allergic/Immunologic: Reports no additional allergic/immunologic complaints Reports system reviewed and no additional complaints, except as documented and Reports Abnormal speech present [facility] Past Medical History Medical History No known health problems Social History Social History Alcohol intake: never Patient Tobacco Use Status: Never used Tobacco Advance Directives: No Advance Directives Information Provided: Yes Physical Exam 2 Vital Signs: Vital Signs: Last Vital Signs Temp 98.0 F 05/19/23 06:22 Pulse 63 05/19/23 06:22 Resp 16 05/19/23 06:22 BP 108/67 05/19/23 06:22 Pulse Ox 97 05/19/23 06:22 O2 Del Method Room Air 05/19/23 06:22 BMI result Body Mass Index 36.2 Vital signs have been reviewed and appear to be correct. Blood pressure elevated. Heart rate normal. Respiratory rate normal. Temperature normal. Oxygen saturation normal. Appearance: Alert. Oriented X3. No acute distress. Head: Normal external exam. Normocephalic. Atraumatic. No Calvin signs noted. No raccoon eyes noted Eyes: PERRLA. EOMI. Conjunctiva and sclera normal. Eyelids normal. ENT: TM's Normal. Pharynx normal. Uvula midline. Moist mucous membranes. No trismus noted. No drooling noted. No muffled voice noted. Neck: Normal inspection. Neck supple. FROM. No adenopathy. Thyroid Normal. No meningeal signs. No neck mass noted. CVS: Normal heart rate and rhythm. Heart sound normal. No murmurs noted. Pulses normal throughout. Respiratory: No respiratory distress. Painless inspiration. Breath sounds normal. No wheezes/rales/rhonchi noted. Chest nontender. No accessory muscle usage noted or decreased air movement noted. Abdomen: Soft and nontender. Bowel sounds normal in all 4 quadrants. No distention noted. No organomegaly noted. No visible injury noted. Back: No CVA tenderness. Full range of motion noted. Skin: Skin warm and dry. Normal skin color. Normal skin turgor. No rashes/lesions/lacerations noted. Extremities: No lower extremity edema. Extremities exhibit normal range of motion. Extremities nontender. Neuro: Oriented X 3. Cranial nerve exam: II-XII are grossly intact No motor deficit. No sensory deficit. Reflexes normal. Course Reevaluation(s) Reevaluation #1: 27-year-old female with a 2 months history of headache that is intermittent now increased in frequency, headache is mostly affecting the left side of her face likely migraine, will discharge the patient to follow-up with Dr. Anderson as an outpatient. Time: 06:57 Medications Administered Discontinued Medications Generic Name Dose Route Start Last Admin Trade Name Freq PRN Reason Stop Dose Admin Diphenhydramine HCl 25 mg 05/19/23 03:05 05/19/23 03:22 Diphenhydramine Hcl 50 Mg/Ml Vial IVPUSH 05/19/23 03:06 25 mg ONCE ONE Administration Sodium Chloride 1,000 mls @ 999 mls/hr 05/19/23 03:05 05/19/23 04:17 Ns IV 05/19/23 04:05 Infused .Q1H1M ONE Infusion Methylprednisolone Sodium Succinate 125 mg 05/19/23 03:05 05/19/23 03:22 Methylprednisolone Sod Succ 125 Mg/2 Ml Vial IVPUSH 05/19/23 03:06 125 mg ONCE ONE Administration Ondansetron HCl 4 mg 05/19/23 03:05 05/19/23 03:22 Ondansetron Hcl 4 Mg/2 Ml Vial IVPUSH 05/19/23 03:06 4 mg ONCE ONE Administration Medical Decision Making Differential Diagnosis Differential Diagnoses: The differential diagnosis associated with the presentation includes (Intracranial bleed, migraine, tension headache, severe anemia, electrolyte abnormality, , upper respiratory viral infection.) Admission/Observation Consideration of admission/observation: Escalation of care including admission/observation considered Lab Data MDM Lab Attestation statement: I reviewed the patient's lab results. 05/19/23 01:51 05/19/23 01:51 Labs: Lab Results 05/19/23 Range/Units 01:51 WBC 9.4 (4.8-10.8) X10*3/uL RBC 4.01 L (4.20-5.50) X10*6/uL Hgb 13.0 (12.0-16.0) g/dl Hct 37.9 (37.0-47.0) % MCV 94.5 (80.0-98.0) fL MCH 32.4 (27.0-33.0) pg MCHC 34.3 (31.0-35.0) g/dl RDW 11.9 (11.0-16.0) % Plt Count 336 (160-400) X10*3/uL MPV 10.7 (9.4-12.3) fL Immature Gran % (Auto) 0.2 (0.0-0.4) % Neut % (Auto) 55.7 (45-73) % Lymph % (Auto) 34.7 (20-40) % Grainger % (Auto) 6.7 (2-11) % Eos % (Auto) 2.3 (0-4) % Baso % (Auto) 0.4 (0-2) % Lymph # (Auto) 3.3 (1.2-4.9) X10*3/uL Grainger # (Auto) 0.6 (0.1-1.2) X10*3/uL Eos # (Auto) 0.2 (0.0-0.4) X10*3/uL Baso # (Auto) 0.0 (0.0-0.2) X10*3/uL Abs Immat Gran (auto) 0.02 (0.00-0.03) X10*3/uL Absolute Neuts (auto) 5.3 (2.0-8.3) x10*3/uL Absolute Nucleated RBC 0.000 (0.0-0.012) X10*3/uL Nucleated RBC % (auto) 0.0 (0.0-0.2) /100WBC Sodium 136 (135-145) mmol/L Potassium 3.5 (3.3-5.1) mmol/L Chloride 105 (96-108) mmol/L Carbon Dioxide 24 (22-29) mmol/L Anion Gap 11 L (12-20) BUN 16 (9-16) mg/dL Creatinine 0.67 (0.5-1.4) mg/dL Estim Creat Clear Calc 149.0 Estimated GFR > 60 Random Glucose 108 (60-115) mg/dL Calcium 9.4 (8.4-10.2) mg/dL Total Bilirubin 0.8 (0.0-1.0) mg/dL Direct Bilirubin 0.3 (0.0-0.5) mg/dL AST 18 (5-31) U/L ALT 19 (0-31) U/L Alkaline Phosphatase 52 (39-117) U/L Total Protein 7.2 (6.5-8.0) g/dL Albumin 3.9 (3.5-5.0) g/dL Beta HCG, Quant < 2 mIU/mL COVID-19 ([facility]) Negative (Negative) COVID-19 Clin Com See Note Influenza Type A ([facility]) Negative (Negative) Influenza Type B ([facility]) Negative (Negative) Influenza A & B Note See Note Independent Interpretation I performed an independent interpretation of an: CT Scan (Head:No acute intracranial pathology. ) Radiology Impression Discussion of test interpretation with radiology: I have reviewed the radiologist's reading. Discharge Plan Discharge Clinical Impression: Headache Patient Disposition: Home, Self-Care Instructions: Acute Headache (ED) Prescriptions: No Action cefpodoxime 200 mg tablet 200 mg PO Q12H 10 Days Qty: 20 0RF Rx Instructions: must administer with a meal/food ketorolac 10 mg tablet 10 mg PO TID 5 Days Qty: 15 0RF Referrals: [facility] [Primary Care Provider] - Dwight Anderson MD [Physician] -
[2023-05-19] MEDS: ondansetron HCL 4 MG/2 ML VIAL IVPUSH (03:22)
[2023-05-19] MEDS: methylPREDNISolone Sod Succ 125 MG/2 ML VIAL IVPUSH (03:22)
[2023-05-19] MEDS: diphenhydrAMINE HCL 50 MG/ML VIAL 25 MG IVPUSH (03:22)
[2023-05-19 04:25] VITALS: BP 105/69; PULSE 61; RESP 15; TEMP 36.8; O2SAT 96
--- NOTE | 2023-05-19 04:46 | MHC.EDTECH ---
Hourly rounds and vitals completed,patient is resting at this time with call irvin in reach
[2023-05-19 06:22] VITALS: BP 108/67; PULSE 63; RESP 16; TEMP 36.7; O2SAT 97
== END 2023-05-19 08:02 | disposition home or self-care (01) ==
PROVIDERS: Emergency Provider Emergency Medicine
DX: R51.9 Headache, unspecified (principal); Z11.52 Encounter for screening for COVID-19; Z79.899 Other long term (current) drug therapy
CPT/HCPCS: 70450; 80048; 80076; 84702; 85025; 87502; 87635; 96361; 96374; 96375; 99284; J1200; J2405; J2930

== ENCOUNTER 2023-07-13 11:43 | Outpatient (REF) | payer MEDICAID, SELFPAY ==
--- NOTE | ~2023-07-13 | XR_ITS ---
EXAMINATION: XR ANKLE, LEFT CLINICAL INFORMATION: Pain in left ankle COMPARISON: None available. TECHNIQUE: AP, lateral, and mortise views of the left ankle. FINDINGS: No fracture. Alignment is anatomic. No erosions. Joint spaces are maintained. Soft tissues are prominent on the lateral aspect of the ankle XR/XR ankle LT min 3V IMPRESSION: No fracture seen. Soft tissue swelling
== END 2023-07-13 11:44 | disposition home or self-care (01) ==
LOC: HO.HHCX 11:43
PROVIDERS: Visit Provider Internal Medicine
DX: M25.572 Pain in left ankle and joints of left foot (principal)
CPT/HCPCS: 73610

== ENCOUNTER 2024-06-28 15:24 | Outpatient (REF) | payer MEDICAID, SELFPAY ==
--- NOTE | ~2024-06-28 | XR_ITS ---
EXAMINATION: XR ELBOW, RIGHT CLINICAL INFORMATION: 2 weeks of anterior right elbow pain after heavy lifting COMPARISON: None available. TECHNIQUE: AP, lateral, and oblique views of the right elbow. FINDINGS: The bones and soft tissues are normal. No fracture or joint effusion. Alignment is anatomic. Joint spaces are maintained. XR/XR elbow RT min 3V IMPRESSION: Unremarkable right elbow exam Electronically signed by: Jayy Nickerson MD 06/28/2024 04:22 PM EDT
--- OUTSIDE RECORDS SUMMARY | 2024-06-28 18:34 | XMS_ITS | Clinical Summary ---
Author Organization [employer] Address [address] [place] [address] Care Team Providers Care Channel Rougher Name Role Phone Kallie Jordan NP Primary Care Provider [phone] Allergies No known active allergies Medications omeprazole OTC (PriLOSEC OTC) 20 MG EC tablet Take 1 tablet (20 mg) by mouth before breakfast. Do not crush, chew, or split. 30 tablet 11 3 Active Arleen 30 MG tablet TAKE 1 TABLET SOON POSSIBLE WITHIN 5 DAYS AFTER UNPROTECTED SEX OR IF YOU HAD A CONTROL FAILURE. MAY BE TAKEN WITH OR WITHOUT FOOD. 3 Active Sod Fluoride-Potas sium Nitrate 1.1-5 % paste [place] teeth for 2 minutes, morning and night. Spit, do not rinse. Do not eat or drink anything for 30 minutes following brushing. 112 g 3 4 Active naproxen (Naprosyn) 500 MG tablet Take 1 tablet (500 mg) by mouth 2 times daily. 40 tablet 5 07/29/19 25 Active meloxicam (Mobic) 15 MG tabletIndicati ons:Acute left ankle pain Take 1 tablet (15 mg) by mouth Once per day. 30 tablet 11 4 06/29/19 25 Discontin ued(Thera py completed ) Active Problems Problem Noted Date Diagnosed Date Dental caries 07/15/2023 Dental calculus 07/15/2023 Periodontal disease 07/15/2023 Gingival bleeding 07/15/2023 Myopia 10/13/2021 Encounters Date Type Department Care Team Description 06/28/2024 3:00 PM EDT Office Visit [facility] [address] [place] [address] Shashi Flynn MD Right elbow pain (Primary Dx) 06/28/2024 Travel 06/23/2024 10:30 AM EDT Office Visit [facility] [address] [place] [address] Connor Duque DDS Dental caries (Primary Dx) 05/27/2024 Population Health Risk Score [facility] ([facility] Department [address] [place] [id number] Provider, Population Health Generic 2024 9:00 AM EST Office Visit [facility] [address] [place] [address] Mandi Cancino Periodontal disease (Primary Dx); Dental calculus; Gingival bleeding 05/18/2024 10:30 AM EST Office Visit [facility] [address] [place] [address] Connor Duque DDS Dental caries (Primary Dx); Incipient enamel caries from Last 3 Months Immunizations Name Administration Dates Next Due Hep B, adult 02/19/2017 Moderna Covid-19 Vaccine 12+ 12/25/2020,11/21/19 21 Tdap 08/19/2016 Family History Medical History Relation Name Comments Diabetes Paternal Grandmother Relation Name Status Comments Paternal Grandmother Social History Tobacco Use Types Packs/Day Years Used Date Smoking Tobacco: Never Passive Smoke Exposure: Never Smokeless Tobacco: Never Tobacco Cessation:Counseling Given: Not Answered Comments Unknown Sex and Gender Information Value Date Recorded Sex Assigned at Female 01/13/2022 10:40 AM EDT Legal Sex Female 10:40 AM EDT Gender Identity Female 01/13/2022 10:40 AM EDT Sexual Orientation Straight 01/13/2022 10 :40 AM EDT Last Filed Vital Signs Vital Sign Reading Time Taken Comments Blood Pressure 122/66 06/28/2024 3:02 PM EDT Pulse 64 06/28/2024 3:02 PM EDT Temperature 36.6 ??C (97.9 ??F) 06/28/2024 3:02 PM ED T Respiratory Rate 18 06/28/2024 3:02 PM EDT Oxygen Saturation 95% 06/28/2024 3:02 PM EDT Inhaled Oxygen Concentration - - Weight 108 kg (237 lb) 06/28/2024 3:02 PM EDT Height 167.6 cm (5' 6 ) 07/13/2023 10:44 AM EDT Body Mass Index 38.25 07/13/2023 10:44 AM EDT Plan of Treatment Upcoming Encounters Date Type Department Care Team (Late st Contact Info) Description 08/05/2024 10:30 AM EDT Office Visit [facility] [address] [place] [address] Connor Duque DDS [address] [place] [address] 11/25/2024 10:00 AM EDT Office Visit [facility] [address] [place] [address] Barak, Mandi [address] [place] [address] Health Maintenance Due Date Last Done Comments Depression Screening 1993 SDOH Screening 1993 Alcohol/Substance Use Screening 2005 Family Planning (PISQ) 2008 Pap Smear 2014 Hepatitis B Vaccines (2 of 3 - 19+ 3-dose series) 03/19/2017 02/19/2017 Cervical Cancer Screening 05/21/2023 HPV/Cotest 05/21/2023 Dental Oral Exam 11/05/2023 05/06/2023 COVID-19 Vaccine (3 - 2023-2 5 season) 2023 12/25/2020, 11/20/2020 Influenza Vaccine (#1) 2023 Dental X-Ray: Bitewings 08/21/2024 08/21/19 24, 05/06/2023 Dental Prophylaxis 11/21/2024 2024, 07/15/2023 Tobacco Screening 06/23/2025 06/23/2024 Dental X-Ray: Full Mouth 05/07/2026 05/06/2023 DTaP/Tdap/Td Vaccines (2 - T d or Tdap) 08/19/2026 08/19/2016 Zoster Vaccines (1 of 2) 05/21/2043 RSV Patients and Patients Aged 60 years or older (1 - 1-dose 75+ series) 2068 HIV Screening Completed 10/11/2021 Hepatitis C Screening Completed 10/11/2021 HIB Vaccines Aged Out No longer eligi ble based on patient's age to complete this topic HPV Vaccines Aged Out No longer eligi ble based on patient's age to complete this topic Hepatitis A Vaccines Aged Out No long er eligible based on patient's age to complete this topic IPV Vaccines Aged Out No longer eligi ble based on patient's age to complete this topic Meningococcal Vaccine Aged Out No nadege cherry eligible based on patient's age to complete this topic Pneumococcal Vaccine: Pediatrics (0 to 5 Years) and At-Risk Patients (6 to 49) Years) Aged Out No longer eligible b ased on patient's age to complete this topic RSV under 20 months Aged Out No longe r eligible based on patient's age to complete this topic Rotavirus Vaccines Aged Out No longer eligible based on patient's age to complete this topic Procedures Procedure Name Priority Date/Time Associated Diagnosis Comments XR ELBOW 3+ VIEWS RIGHT Routine 06/28/2024 3:24 PM EDT Right elbow pain CASE PRESENTATION, DETAILED AND EXTENSIVE TREATMENT PLANNING Routine 06/23/2024 10:30 AM EDT 17 O RESIN-BASED COMPOSITE - 1 SURF, POSTERIOR Routine 06/23/2024 10:30 AM EDT 18 O RESIN-BASED COMPOSITE - 1 SURF, POSTERIOR Routine 06/23/2024 10:30 AM EDT 19 O RESIN-BASED COMPOSITE - 1 SURF, POSTERIOR Routine 06/23/2024 10:30 AM EDT 20 O RESIN-BASED COMPOSITE - 1 SURF, POSTERIOR Routine 06/23/2024 10:30 AM EDT CASE PRESENTATION, DETAILED AND EXTENSIVE TREATMENT PLANNING Routine 2024 9:00 AM EST Periodontal disease Dental calculus Gingival bleeding ORAL HYGIENE INSTRUCTIONS Routine 2024 9:00 AM EST Periodontal disease Dental calculus Gingival bleeding PROPHYLAXIS - ADULT Routine 2024 9 :00 AM EST Periodontal disease Dental calculus Gingival bleeding CASE PRESENTATION, DETAILED AND EXTENSIVE TREATMENT PLANNING Routine 05/18/2024 10:30 AM EST 32 LA RESIN-BASED COMPOSITE - 2 SURF, POSTERIOR Routine 05/18/2024 10:30 AM EST 31 O RESIN-BASED COMPOSITE - 1 SURF, POSTERIOR Routine 05/18/2024 10:30 AM EST 30 LA RESIN-BASED COMPOSITE - 2 SURF, POSTERIOR Routine 05/18/2024 10:30 AM EST BITEWINGS - 4 RADIOGRAPHIC IMAGES Routine 08/21/2023 9:00 AM EDT Periodontal disease Dental calculus Gingival bleeding Dental caries INTRAORAL - COMPLETE SERIES OF RADIOGRAPHIC IMAGES Routine 05/06/2023 2:00 PM EST Dental caries COMPREHENSIVE ORAL EVALUATION - NEW OR ESTABLISHED PATIENT Routine 05/06/2023 2:00 PM EST Dental caries ZZZ HISTORICAL HEPATITIS C AB W/REFL TO HCV RNA, QN, PCR Routine 10/11/2021 9:58 AM EDT HIV 1/2 ANTIGEN/ANTIBODY, FOURTH GENERATION W/RFL Routine 10/11/2021 9:58 AM EDT from Last 3 Months or Most Recently Relevant to Health Maintenance Results * XR Elbow 3+ Views Right (06/28/2024 3:24 PM EDT) Anatomical Region Laterality Modality Upper Extremities, Elbow Right Radiogr aphic Imaging 06/28/2024 3:24 PM EDT Narrative 06/28/2024 4:25 PM EDT ?[facility] ?[address] ?[place] [address] ?XRay Report ? Signed ? Patient: Rm,Nati ?MR#: [id number] ? : 1995 ?Acct:[id number] ? Age/Sex: 29 / F ?ADM Date: 04/15/25 ? Loc: HO.HHCX ? Attending : Shashi Name MD ? Ordering Physician: Shashi Flynn MD ?? Date of Service: 06/28/24 ?? Procedure(s): XR elbow RT min 3V ?? Accession Number(s): [id number] ? cc: Shashi Flynn MD ? EXAMINATION: ?? XR ELBOW, RIGHT ? CLINICAL INFORMATION: ?? 2 weeks of anterior right elbow pain after heavy lifting ? COMPARISON: ?? None available. ? TECHNIQUE: ?? AP, lateral, and oblique views of the right elbow. ? FINDINGS: ?? The bones and soft tissues are normal. No fracture or joint effusion. ?? Alignment is anatomic. Joint spaces are maintained. ? XR/XR elbow RT min 3V ?? IMPRESSION: ?? Unremarkable right elbow exam ? Electronically signed by: ??Jayy Nickerson MD ??06/28/2024 04:22 PM EDT RP ? Dictated By: ?Jayy Nickerson MD ? Signed By: ?<Electronically signed by Jayy Nickerson MD in OV> ?06/28/24 1622 ? DD/ 1524 ? TD/TT: 06/28/24 1600 ? Make Up Operator: MSM ? Procedure Note Dominga, Image - 06/28/[address] [address] XRay Report Signed Patient: James Rm#: [id number] : 1995Acct:[id number] Age/Sex: 29 / FADM Date: 06/28/24 Loc: HO.HHCX Attending Dr: Shashi Flynn MD Ordering Physician: Shashi Flynn MD Date of Service: 06/28/24 Procedure(s): XR elbow RT min 3V Accession Number(s): [id number] cc: Shashi Flynn MD EXAMINATION: XR ELBOW, RIGHT CLINICAL INFORMATION: 2 weeks of anterior right elbow pain after heavy lifting COMPARISON: None available. TECHNIQUE: AP, lateral, and oblique views of the right elbow. FINDINGS: The bones and soft tissues are normal. No fracture or joint effusion. Alignment is anatomic. Joint spaces are maintained. XR/XR elbow RT min 3V IMPRESSION: Unremarkable right elbow exam Electronically signed by: Jayy Nickerson MD 06/28/2024 04:22 PM EDT Dictated By: Jayy Nickerson MD Signed By: <Electronically signed by Jayy Nickerson MD in OV> 06/28/24 1622 DD/ 1524 TD/TT: 06/28/24 1600 Make Up Operator: RAMU Shashi Rina ACOSTA IMJasbir XR PROCEDURES Final Result * HEPATITIS C AB W/REFL TO HCV RNA, QN, PCR (10/11/2021 9:58 AM EDT) HEPATITIS C ANTIBODY NON-REACT VERO NON-REACT VERO [facility] INDEX 0.19 <1.00 [facility] Comment: ?? HCV antibody was non-reactive. There is no laboratory ?? evidence of HCV infection. ?? In most cases, no further action is required. However, if recent HCV exposure is suspected, a test for HCV RNA (test code 77157) is suggested. ?? For additional information please refer to http://AppNexus.Sterecycle/faq/QAL12r6 (This link is being provided for informational/ educational purposes only.) ?? 10/11/2021 9:58 AM EDT Randi Artis STRUCTURAL BIOLOGIST HISTORICAL/NON ORDERABLE L ABS Final Result [facility] [address] * HIV 1/2 ANTIGEN/ANTIBODY,FOURTH GENERATION W/RFL (10/11/2021 9:58 AM EDT) HIV-1/2 ANTIGEN AND ANTIBODIES, 4TH GENERATION W/ REFLEX NON-REACT VERO NON-REACT VERO [facility] Comment: HIV-1 antigen and HIV-1/HIV-2 antibodies were not detected. There is no laboratory evidence of HIV infection. ?? PLEASE NOTE: This information has been disclosed to you from records whose confidentiality may be protected by state law. ??If your state requires such protection, then the state law prohibits you from making any further disclosure of the information without the specific written consent of the person to whom it pertains, or as otherwise permitted by law. A general authorization for the release of medical or other information is NOT sufficient for this purpose. ? For additional information please refer to http://AppNexus.Sterecycle/faq/JVG029 (This link is being provided for informational/ educational purposes only.) ? The performance of this assay has not been clinically validated in patients less than 2 years old. ?? 10/11/2021 9:58 AM EDT us Randi Artis STRUCTURAL BIOLOGIST LAB BLOOD ORDERABLES Final Result [facility] [address] from Last 3 Months or Most Recently Relevant to Health Maintenance Insurance [facility] C[facility] MEDICAID STAND ADULT Care Teams Channel Rougher Relationship Specialty Start Date End Date Kallie Jordan NP [address] [place] [id number] PCP - General Family Medicine 04/22/23
--- OUTSIDE RECORDS SUMMARY | 2024-06-28 18:34 | XMS_ITS | Encounter Summary ---
Author Organization [employer] Address [address] [place] [address] 7 [place] [address] Care Team Providers Care System Auditor Name Role Phone Kallie Jordan NP Primary Care Provider [phone] Reason for Referral * Consultation (Routine) - Pending Review Specialty Diagnoses / Procedures Referred By Joselito carroll Referred To Contact Physical Therapy Diagnoses Right elbow pain Shashi Flynn MD [address] [place] [address] Phone: tel: fax: Referral ID Status Reason Start Date Expiration Date Visits Requested Visits Authorized [id number] Pending Review Specialty Services Required 06/28/2024 06/28/2025 1 1 Reason for Visit * Reason Comments Arm Pain Encounter Details Date Type Department Care Team (Late st Contact Info) Description 06/28/2024 3:00 PM EDT Office Visit [facility] [address] [place] [phone] Shashi Flynn MD [address] [place] [address] [phone] Right elbow pain (Primary Dx) Social History Tobacco Use Types Packs/Day Years Used Date Smoking Tobacco: Never Passive Smoke Exposure: Never Smokeless Tobacco: Never Comments Unknown Sex and Gender Information Value Date Recorded Sex Assigned at Female 01/13/2022 10:40 AM EDT Legal Sex Female 10:40 AM EDT Gender Identity Female 01/13/2022 10:40 AM EDT Sexual Orientation Straight 01/13/2022 10 :40 AM EDT documented as of this encounter Last Filed Vital Signs Vital Sign Reading Time Taken Comments Blood Pressure 122/66 06/28/2024 3:02 PM EDT Pulse 64 06/28/2024 3:02 PM EDT Temperature 36.6 ??C (97.9 ??F) 06/28/2024 3:02 PM ED T Respiratory Rate 18 06/28/2024 3:02 PM EDT Oxygen Saturation 95% 06/28/2024 3:02 PM EDT Inhaled Oxygen Concentration - - Weight 108 kg (237 lb) 06/28/2024 3:02 PM EDT Height - - Body Mass Index 38.25 07/13/2023 10:44 AM EDT documented in this encounter Progress Notes * Shashi Flynn, - 06/28/2024 3:00 PM EDT Subjective Patient ID: Nati Rm is a 29 y.o. female who presents for Arm Pain. Patient comes complaining of 2 weeks of anterior right elbow pain. The patient describes some radiation of the pain to the adjacent forearm and arm. The patient is right-handed. She has decreased range of motion and mild swelling. The pain started after lifting heavy grocery bags and it has not improved. 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 There is no possibility of because she is not sexually active. Review of Systems Constitutional: Negative for chills and fever. HENT: Negative for sore throat. Respiratory: Negative for cough, shortness of breath and wheezing. Cardiovascular: Negative for chest pain, palpitations and leg swelling. Gastrointestinal: Negative for abdominal pain. Musculoskeletal: See HPI Visit Vitals BP 122/66 (BP Location: Left arm, Patient Position: Sitting, BP Cuff Size: Large adult) Pulse 64 Temp 97.9 ??F (36.6 ??C) (Oral) Resp 18 Wt 237 lb (108 kg) SpO2 95% BMI 38.25 kg/m?? Smoking Status Never BSA 2.24 m?? Objective Physical Exam Constitutional: General: She is not in acute distress. Cardiovascular: Rate and Rhythm: Normal rate and regular rhythm. Pulmonary: Effort: Pulmonary effort is normal. Breath sounds: Normal breath sounds. Musculoskeletal: Comments: The patient has discomfort on palpation of the right elbow, decreased range of motion of the right elbow. Assessment/Plan Diagnoses and all orders for this visit: Right elbow pain Comments: I suspect tendinitis or muscular injury based on her physical exam and history. I recommended rest,she was prescribed arm sling, she was given a note for work, referral to PT, x-ray prior to PT evaluation, she was prescribed a course of naproxen for pain. Orders: - XR Elbow 3+ Views Right; Future - Referral to Physical Therapy; Future Other orders - naproxen (Naprosyn) 500 MG tablet; Take 1 tablet (500 mg) by mouth 2 times daily. documented in this encounter Plan of Treatment Upcoming Encounters Date Type Department Care Team (Late st Contact Info) Description 08/05/2024 10:30 AM EDT Office Visit [facility] [address] [place] [address] Connor Duque DDS [address] [place] [address] 11/25/2024 10:00 AM EDT Office Visit [facility] [address] [place] [address] BarakMandi [address] [place] [address] Scheduled Referrals Name Type Priority Associated Diagnoses Orde r Schedule Referral to Physical Therapy Outpatient Referral Routine Right elbow pain Expected: 06/28/2024 (Approximate), Expires: 06/28/2025 documented as of this encounter Procedures Procedure Name Priority Date/Time Associated Diagnosis Comments XR ELBOW 3+ VIEWS RIGHT Routine 06/28/2024 3:24 PM EDT Right elbow pain documented in this encounter Results * XR Elbow 3+ Views Right (06/28/2024 3:24 PM EDT) Anatomical Region Laterality Modality Upper Extremities, Elbow Right Radiogr aphic Imaging 06/28/2024 3:24 PM EDT Narrative 06/28/2024 4:25 PM EDT ?[facility] ?[address] ?[place] [address] ?XRay Report ? Signed ? Patient: Rm,Nati ?MR#: [id number] ? : 1995 ?Acct:[id number] ? Age/Sex: 29 / F ?ADM Date: 06/28/24 ? Loc: HO.HHCX ? Attending Dr: Shashi Flynn MD ? Ordering Physician: Shashi Flynn MD ?? Date of Service: 06/28/24 ?? Procedure(s): XR elbow RT min 3V ?? Accession Number(s): [id number] ? cc: Shashi Flynn MD ? EXAMINATION: [...] DD/ 1524 ? TD/TT: 06/28/24 1600 ? Construction Equipment Overhauler: MSM ? Procedure Note Dominga, Serena - 06/28/[address] [address] XRay Report Signed Patient: James Rm#: [id number] : 1995Acct:[id number] Age/Sex: 29 / FADM Date: 06/28/24 Loc: HO.HHCX Attending DrSegun Flynn MD Ordering Physician: Shashi Flynn MD Date of Service: 06/28/24 Procedure(s): XR elbow RT min 3V Accession Number(s): [id number] cc: Shashi Flynn MD EXAMINATION: XR ELBOW, [...] Jayy Nickerson MD 06/28/2024 04:22 PM EDT RP Dictated By: Jayy Nickerson MD Signed By: <Electronically signed by Jayy Nickerson MD in OV> 06/28/24 1622 DD/ 1524 TD/TT: 06/28/24 1600 Construction Equipment Overhauler: RAMU Shashi Flynn MD IMG XR PROCEDURES Final Result documented in this encounter Visit Diagnoses Diagnosis Right elbow pain- Primary Pain in joint, upper arm documented in this encounter Care Teams System Auditor Relationship Specialty Start Date End Date Kallie Jordan NP [address] [place] [address] PCP - General Family Medicine 04/22/23 documented as of this encounter
--- OUTSIDE RECORDS SUMMARY | 2024-06-28 18:34 | XMS_ITS | Clinical Summary ---
Author Organization [facility] Address [address] [place] [address] Care Team Providers Care Physician Assistant Primary Care Name Role Phone Unavailable Primary Care Provider Unavailabl e Social History Tobacco Use Types Packs/Day Years Used Date Smoking Tobacco: Never Assessed Comments Unknown Sex and Gender Information Value Date Recorded Sex Assigned at Not on file Legal Sex Female 8:28 AM EST Gender Identity Not on file Sexual Orientation Not on file Plan of Treatment Health Maintenance Due Date Last Done Comments Cervical Cancer Screening: P ap Smear 2014 Hepatitis B Vaccines (2 of 3 - 19+ 3-dose series) 03/19/2017 02/19/2017 COVID-19 Vaccine (2023-2 5 season) 2023 Influenza Vaccine (Season Ended) 2024 DTaP,Tdap,and Td Vaccines (2 - Td or Tdap) 08/19/2026 08/19/2016 HIB Vaccines Aged Out No longer eligi [...] on patient's age to complete this topic MMR Vaccines Aged Out No longer eligi ble based on patient's age to complete this topic Meningococcal ACWY Vaccine Aged Out N o longer eligible based on patient's age to complete this topic Meningococcal B Vaccine Aged Out No l onger eligible based on patient's age to complete this topic Pneumococcal Vaccine: Pediat rics (0 to 5 Years) and At-Risk Patients (6 to 64 Years) Aged Out No longer eligi ble based on patient's age to complete this topic RSV Immunization Patients Un anastacio 20 months Aged Out No longer eligible b ased on patient's age to complete this topic Varicella Vaccines Aged Out No longer eligible based on patient's age to complete this topic
--- OUTSIDE RECORDS SUMMARY | 2024-06-28 18:34 | XMS_ITS | Encounter Summary ---
Author Organization [employer] Address [address] [place] [address] 7 [place] [address] Care Team Providers Care Director Of Public Relations Name Role Phone Gini Jordanily [place] Primary Care Provider [phone] Reason for Visit * Reason Comments Filling Encounter Details Date Type Department Care Team (Late st Contact Info) Description 06/23/2024 10:30 AM EDT Office Visit [facility] [address] [place] [address] Connor Duque DDS [address] [place] [address] Dental caries (Primary Dx) Social History Tobacco Use Types [...] Sign Reading Time Taken Comments Blood Pressure 118/74 06/23/2024 10:35 AM EDT Pulse 64 06/23/2024 10:35 AM EDT Temperature - - Respiratory Rate - - Oxygen Saturation - - Inhaled Oxygen Concentration - - Weight - - Height - - Body Mass Index - - documented in this encounter Progress Notes * Connor Duque DDS - 06/23/2024 10:30 AM EDT Patient ID: Nati Rm is a 29 y.o. female. Time Out: Timeout Date: 06/23/24, Timeout Time: 103 (composite on tooth #17 , 18 . 19 , 20) Location: [facility] Tooth: Mandible, #17, #18, #19, and #20 Procedure: Restorationist Verified the above with patient, sales assistant displays, and provider. Confirmed via patient's chart, intraorally and by radiographs. Career Guidance Counselor: not applicable Chief Complaint Patient presents with Filling Medical Hx: Vitals: Blood pressure 118/74, pulse 64. Medications, Med Hx reviewed with patient and updated in chart. Consent Obtained: The risks, benefits, indications, potential complications, and alternatives were explained to the patient and informed consent was obtained with good understanding. Treatment Provided: Dental procedures in this visit D2391 - RESIN-BASED COMPOSITE - 1 SURF, POSTERIOR 19 O (Completed) Service provider: Connor Duque DDS [place] provider: Connor Duque DDS D2391 - RESIN-BASED COMPOSITE - 1 SURF, POSTERIOR 20 O (Completed) Service provider: Connor Duque DDS [place] provider: Connor Duque DDS D2391 - RESIN-BASED COMPOSITE - 1 SURF, POSTERIOR 18 O (Completed) Service provider: Connor Duque DDS [place] provider: Connor Duque DDS D2391 - RESIN-BASED COMPOSITE - 1 SURF, POSTERIOR 17 O (Completed) Service provider: Connor Duque DDS [place] provider: Connor Duque DDS D9450 - CASE PRESENTATION, DETAILED AND EXTENSIVE TREATMENT PLANNING (Completed) Service provider: Connor Duque DDS Billing provider: Connor Duque DDS Diagnosis: Caries Topical: 20% Benzocaine Anesthesia: 2% Lidocaine (Xylocaine) w/ 1:100,000 epinephrine Number of Cartridges: 1 Injection Type: Inferior alveolar nerve block Confirmed profound anesthesia. Isolation: high speed suction, cotton rolls, and cheek guard Prep: All caries removed and Preparation finalized Matrix: None Etch: 37% Phosphoric Acid Etch Desensitizer: Gluma Liner/Base: LimeLite Schwartz: I-Schwartz Restorationist Material: Filtek [place] Flowable Composite and Paradigm Composite Shade: A3 Potential postop hypersensitivity, pt was advised to take OTC Acetaminophen 500 mg q 6-8 hrs for pain . Polished. Occlusion & contacts verified. Patient satisfied with comfort and esthetics. Patient tolerated procedure well. Post-operative instructions were given. Patient departed alert, oriented, and in stable condition. NV: Cont. afia Creative Guru: Miriam Davies Dentist: Connor Duque DDS documented in this encounter Plan of Treatment Upcoming Encounters Date Type Department Care Team (Late st Contact Info) Description 08/05/2024 10:30 AM EDT Office Visit [facility] [address] [place] [address] Connor Duque DDS [address] [place] [address] 11/25/2024 10:00 AM EDT Office Visit [facility] [address] [place] [address] BarakMandi rae [address] [place] [address] documented as of this encounter Procedures Procedure Name Priority Date/Time Associated Diagnosis Comments 17 O RESIN-BASED COMPOSITE - 1 SURF, [...] TREATMENT PLANNING Routine 06/23/2024 10:30 AM EDT documented in this encounter Visit Diagnoses Diagnosis Dental caries- Primary Unspecified dental caries documented in this encounter Care Teams Director Of Public Relations Relationship Specialty Start Date End Date Kallie Jordan NP [address] [place] [address] PCP - General Family Medicine 04/22/23 documented as of this encounter
--- OUTSIDE RECORDS SUMMARY | 2024-06-28 18:34 | XMS_ITS | Encounter Summary ---
Author Organization [facility] Address [address] [place] [address] 7 [place] [address] Care Team Providers Care Dye Can Operator Name Role Phone PrabhuKallie colbert [place] Primary Care Provider [phone] Encounter Details Date Type Department Care Team (Latest Contact Info) Description 06/28/2024 Travel Social History Tobacco Use Types Packs/Day Years Used Date Smoking Tobacco: Never Passive Smoke Exposure: Never Smokeless Tobacco: Never Comments Unknown Sex and Gender Information Value Date Recorded Sex Assigned at Female 01/13/2022 10:40 AM EDT Legal Sex Female 10:40 AM EDT Gender Identity Female 01/13/2022 10:40 AM EDT Sexual Orientation Straight 01/13/2022 10 :40 AM EDT documented as of this encounter Plan of Treatment Upcoming Encounters Date Type Department Care Team ( st Contact Info) Description 08/05/2024 10:30 AM EDT Office Visit [facility] [address] [place] [address] Connor Duque DDS [address] [place] [address] 11/25/2024 10:00 AM EDT Office Visit [facility] [address] [place] [address] Mandi Cancino [address] [place] [address] documented as of this encounter Visit Diagnoses Not on filedocumented in this encounter Care Teams Dye Can Operator Relationship Specialty Start Date End Date Kallie Jordan NP [address] [place] [address] PCP - General Family Medicine 04/22/23 documented as of this encounter
== END 2024-06-28 15:25 | disposition home or self-care (01) ==
LOC: HO.HHCX 15:24
PROVIDERS: Visit Provider Internal Medicine Geriatric Medicine
DX: M25.521 Pain in right elbow (principal)
CPT/HCPCS: 73080

== ENCOUNTER → 2024-06-28 15:24 | Outpatient (BNV) | payer MEDICAID, SELFPAY | PROVIDERS: Visit Provider Radiology Diagnostic Radiology | DX: M25.521 Pain in right elbow (principal) | CPT/HCPCS: 73080 ==

== ENCOUNTER 2024-07-15 05:37 | Emergency (ER) | payer MEDICAID, SELFPAY ==
--- NOTE | ~2024-07-15 | US_ITS ---
EXAMINATION: US PELVIS CLINICAL INFORMATION: Left-sided abdominal pain, ovarian cyst seen on CT exam. COMPARISON: Correlation made with CT abdomen and pelvis performed earlier same day. Pelvic ultrasound 07/05/2021. TECHNIQUE: Ultrasound of the pelvis is performed using both transabdominal and transvaginal transducers along with Doppler. Transvaginal imaging is performed due to inadequate visualization transabdominally. FINDINGS: Uterus: The uterus is anteverted, anteflexed, and measures 7.6 x 4.2 x 4.6 cm. The cervix has a normal sonographic appearance. The double wall endometrial thickness is 8 mm. It is uniform without irregularity. The uterus is smooth in contour and has normal myometrial echogenicity. No visible fibroid. Adnexa: Both ovaries are visualized. There is normal color flow to the adnexa. There is no ovarian torsion. There is no pelvic ascites or fluid collection. Right ovary measures 4.0 x 3.2 x 3.6 cm. Volume = 23.9 mL. There is a isoechoic appearing intraovarian mass measuring 2.3 x 2.3 x 2.5 cm, minimally larger from the previous pelvic ultrasound where it measured 1.8 x 2.2 x 1.8 cm. Left ovary measures 5.3 x 4.7 x 4.1 cm. Volume = 54.4 mL. There is an essentially simple follicular cyst measuring 3.7 x 3.2 x 3.5 cm. US/US pelvic ovarian doppler IMPRESSION: 1. There is no evidence of ovarian torsion. 2. There is an isoechoic right intraovarian oval mass measuring 2.3 x 2.3 x 2.5 cm, minimally larger from the previous pelvic ultrasound (measured 1.8 x 2.2 x 1.8 cm) and most likely benign given slow interval growth. Differential includes ovarian fibroma or thecoma. Correlation with pelvic MRI may be of benefit for confirmation. 3. There is a simple follicular cyst in the left ovary measuring 3.7 x 3.2 x 3.5 cm. 4. Normal-appearing uterus and endometrium. No free fluid. Electronically signed by: Galen Norris MD 07/15/2024 12:20 PM EDT
--- NOTE | ~2024-07-15 | US_ITS ---
EXAMINATION: US PELVIS CLINICAL INFORMATION: Left-sided abdominal pain, ovarian cyst seen on CT exam. COMPARISON: Correlation made with CT abdomen and pelvis performed earlier same day. Pelvic ultrasound 07/05/2021. TECHNIQUE: Ultrasound of the pelvis is performed using both transabdominal and transvaginal transducers along with Doppler. Transvaginal imaging is performed due to inadequate visualization transabdominally. FINDINGS: Uterus: The uterus is anteverted, anteflexed, and measures 7.6 x 4.2 x 4.6 cm. The cervix has a normal sonographic appearance. The double wall endometrial thickness is 8 mm. It is uniform without irregularity. The uterus is smooth in contour and has normal myometrial echogenicity. No visible fibroid. Adnexa: Both ovaries are visualized. There is normal color flow to the adnexa. There is no ovarian torsion. There is no pelvic ascites or fluid collection. Right ovary measures 4.0 x 3.2 x 3.6 cm. Volume = 23.9 mL. There is a isoechoic appearing intraovarian mass measuring 2.3 x 2.3 x 2.5 cm, minimally larger from the previous pelvic ultrasound where it measured 1.8 x 2.2 x 1.8 cm. Left ovary measures 5.3 x 4.7 x 4.1 cm. Volume = 54.4 mL. There is an essentially simple follicular cyst measuring 3.7 x 3.2 x 3.5 cm. US/US pelvic and transvaginal IMPRESSION: 1. There is no evidence of ovarian torsion. 2. There is an isoechoic right intraovarian oval mass measuring 2.3 x 2.3 x 2.5 cm, minimally larger from the previous pelvic ultrasound (measured 1.8 x 2.2 x 1.8 cm) and most likely benign given slow interval growth. Differential includes ovarian fibroma or thecoma. Correlation with pelvic MRI may be of benefit for confirmation. 3. There is a simple follicular cyst in the left ovary measuring 3.7 x 3.2 x 3.5 cm. 4. Normal-appearing uterus and endometrium. No free fluid. Electronically signed by: Galen Norris MD 07/15/2024 12:20 PM EDT
--- NOTE | ~2024-07-15 | CT_ITS ---
EXAMINATION: CT ABDOMEN PELVIS WITHOUT IV CONTRAST HISTORY: L flank pain COMPARISON: There are comparison is made with the prior examination dated 07/05/2021. TECHNIQUE: CT scan of the abdomen and pelvis was performed without contrast using standard departmental protocol. Coronal and sagittal reformatted images were generated and reviewed. Oral contrast material was not administered per department protocol. This CT exam was performed with one or more of the following dose reduction techniques: automated exposure control, adjustment of the mA and/or kV according to patient size, use of iterative reconstruction technique. DLP: 872 mGy-cm FINDINGS: LOWER CHEST: The visualized lung bases are clear. There is no pleural effusion. CARDIOVASCULATURE: The heart is normal in size. There is no pericardial effusion. LIVER: The liver is normal in size and contour. The liver demonstrates diffusely decreased attenuation, consistent with steatosis. There is focal fatty sparing adjacent to the gallbladder. GALLBLADDER / BILE DUCTS: The gallbladder is unremarkable. There is no intra or extrahepatic biliary ductal dilatation. SPLEEN: The spleen is normal in size and has an unremarkable unenhanced appearance. PANCREAS: The pancreas has an unremarkable unenhanced appearance. ADRENAL GLANDS: Unremarkable. KIDNEYS/RETROPERITONEUM: No renal or ureteral calculi are identified. There is no hydronephrosis or hydroureter. LYMPH NODES: No retroperitoneal lymphadenopathy is identified in the abdomen or pelvis. VASCULATURE: The abdominal aorta is normal in caliber. MESENTERY/PERITONEUM: No free fluid. No masses. There is no free intraperitoneal gas. STOMACH: There is a small hiatal hernia. The remainder of the stomach is collapsed. SMALL BOWEL: The small bowel is normal in caliber. COLON: The colon is unremarkable. APPENDIX: Normal. URINARY BLADDER/PELVIC ORGANS: The urinary bladder is unremarkable. The uterus has an unremarkable unenhanced appearance. There is a probable 2.4 cm right ovarian follicle. There is a probable 3.9 cm left ovarian cyst versus follicle. BONES / SOFT TISSUES: No suspicious bony or soft tissue abnormalities. CT/CT abdomen pelvis wo IV con IMPRESSION: 1. No evidence of nephrolithiasis or ureteral obstruction. 2. Hepatic steatosis. 3. Small hiatal hernia. 4. 3.9 cm probable left ovarian cyst versus follicle. Electronically signed by: Ruben Schreiber MD 07/15/2024 08:27 AM EDT
[2024-07-15 05:51] VITALS: BP 138/86; PULSE 74; RESP 22; TEMP 37.1; O2SAT 98
--- OUTSIDE RECORDS SUMMARY | 2024-07-15 05:55 | XMS_ITS | Clinical Summary ---
Author Organization [employer] Address [address] [facility] [address] [place] [address] Care Team Providers Care Chemical Analyst Name Role Phone Kallie Jordan NP Primary Care Provider [phone] Allergies No known active allergies Medications omeprazole [...] Sod Fluoride-Potas sium Nitrate 1.1-5 % paste [place] teeth for 2 minutes, morning and night. [...] Encounters Date Type Department Care Team Description 06/29/[address] [facility] [address] [place] [address] Shashi Flynn MD Results 06/28/2024 3:00 PM EDT Office Visit [facility] [address] [place] [address] Shashi Flynn MD Right elbow pain (Primary Dx) 06/28/2024 Travel 06/23/2024 10:30 AM EDT Office Visit [facility] [address] [place] [address] Connor Duque DDS Dental caries (Primary Dx) 05/27/2024 Population Health Risk Score [facility] [address] [place] [phone] Provider, Population Health Generic 2024 9:00 AM EST Office Visit [facility] [address] [place] [address] Mandi Cancino Periodontal disease (Primary Dx); Dental calculus; Gingival bleeding 05/18/2024 10:30 AM EST Office Visit [facility] [address] [place] [address] Connor Duque DDS Dental caries (Primary Dx); [...] Description 08/05/2024 10:30 AM EDT Office Visit [facility] [address] [place] [address] Connor Duque DDS [address] [place] [address] 11/25/2024 10:00 AM EDT Office Visit [facility] [address] [place] [address] Mandi Cancino [address] [place] [address] Health Maintenance Due Date Last Done Comments [...] PM EDT Narrative 06/28/2024 4:25 PM EDT ?[facility] ?[address] ?[place] [address] ?XRay Report ? Signed ? Patient: Nati Rm ?MR#: [id number] ? : 1995 ?Acct:[id number] ? Age/Sex: 29 / F ?ADM Date: 04/15/25 ? Loc: HO.HHCX ? Attending Dr: Shashi Flynn MD ? Ordering Physician: Shashi Flynn MD ?? Date of Service: 06/28/24 ?? Procedure(s): XR elbow RT min 3V ?? Accession Number(s): [id number] ? cc: Rina,Shashi ACOSTA ? EXAMINATION: ?? XR ELBOW, RIGHT ? [...] DD/ 1524 ? TD/TT: 06/28/24 1600 ? Bartender Manager: MSM ? Procedure Note Don[place], Image - 06/28/[address] [address] XRay Report Signed Patient: James Rm#: [id number] : 1995Acct:[id number] Age/Sex: 29 FADM Date: 06/28/24 Loc: HO.HHCX Attending Dr: Shashi Flynn MD Ordering Physician: Shashi Flynn MD Date of Service: 06/28/24 Procedure(s): XR elbow RT min 3V Accession Number(s): [id number] cc: Shashi Flynn MD EXAMINATION: XR ELBOW, [...] 06/28/24 1622 DD/ 1524 TD/TT: 06/28/24 1600 Bartender Manager: RAMU Shashi HENRIQUEZ XR PROCEDURES Final Result * HEPATITIS C AB W/REFL TO HCV RNA, QN, PCR (10/11/2021 9:58 AM EDT) HEPATITIS C ANTIBODY NON-REACT VERO NON-REACT VERO [facility] INDEX 0.19 <1.00 [facility] Comment: ?? HCV antibody was non-reactive. There is no laboratory ?? evidence of HCV infection. ?? In most cases, no further action is required. However, if recent HCV exposure is suspected, a test for HCV RNA (test code 34853) is suggested. ?? For additional information please refer to http://[employer].Wriggle/faq/HBK41s0 (This link is being provided for informational/ educational purposes only.) ?? 10/11/2021 9:58 AM EDT Randi Artis NURSE DISCHARGE HISTORICAL/NON ORDERABLE L ABS Final Result [facility] [address] * HIV 1/2 ANTIGEN/ANTIBODY,FOURTH GENERATION W/RFL (10/11/2021 9:58 AM EDT) HIV-1/2 ANTIGEN AND ANTIBODIES, 4TH GENERATION W/ REFLEX NON-REACT VERO NON-REACT VERO [facility] Comment: HIV-1 antigen and HIV-1/HIV-2 [...] ? For additional information please refer to http://education.[employer]/faq/VXI795 (This link is being provided for informational/ educational purposes only.) ? The performance of this assay has not been clinically validated in patients less than 2 years old. ?? 10/11/2021 9:58 AM EDT Randi Sofya Artis NURSE DISCHARGE LAB BLOOD ORDERABLES Final Result [facility] [address] from Last 3 Months or Most Recently Relevant to Health Maintenance Insurance [facility] C3 DENTAL-[facility] MEDICAID STAND ADULT Care Teams Chemical Analyst Relationship Specialty Start Date End Date Kallie Jordan NP [address] [place] [phone] PCP - General Family Medicine 04/22/23
[2024-07-15 06:10] VITALS: BP 132/84; BP 138/86; PULSE 62; O2SAT 98; BMI 37.6
[2024-07-15 06:13] LABS: Appearance Urine Clear; Color Urine Yellow; Glucose Urine UA Negative (Negative); Leukocyte Esterase Urine Trace (Negative); Nitrite Urine Negative (Negative); Specific Gravity - Urine >= 1.030 (1.005-1.025); UMIC TRIGGER UACC YES; Urine Blood Large (3+) (Negative); Urine Ketones Negative (Negative); Urine Protein Negative (Neg-Trace)
[2024-07-15 06:14] LABS: UPreg QC Valid YES; Urine Pregnancy NEGATIVE (NEGATIVE)
[2024-07-15 06:15] LABS: Bacteria Urine 1+ (None Seen); Hyaline Casts Urine 0-2 /LPF (0-2); UACC Culture Trigger YES; WBC Urine 21-50 /HPF (0-5)
[2024-07-15 06:35] LABS: Basophils Percent Auto 0.3 % (0-2); Eosinophils Absolute Auto 0.1 X10*3/uL (0.0-0.4); Eosinophils Percent Auto 1.5 % (0-4); Hematocrit 38.8 % (37.0-47.0); Hemoglobin 13.5 g/dl (12.0-16.0); Imm Gran Abs Auto 0.02 X10*3/uL (0.00-0.03); Imm Gran Pct Auto 0.2 % (0.0-0.4); Lymphocytes Absolute Auto 2.4 X10*3/uL (1.2-4.9); Lymphocytes Percent Auto 27.9 % (20-40); MANUAL DIFF FLAG NO; Mean Corpuscular HGB Conc 34.8 g/dl (31.0-35.0); Mean Corpuscular Hemoglobin 32.5 pg (27.0-33.0); Mean Corpuscular Volume 93.3 fL (80.0-98.0); Mean Platelet Volume 10.6 fL (9.4-12.3); Monocytes Absolute Auto 0.6 X10*3/uL (0.1-1.2); Monocytes Percent Auto 6.6 % (2-11); Neutrophils Absolute Auto 5.5 x10*3/uL (2.0-8.3); Neutrophils Percent Auto 63.5 % (45-73); Platelet Count 316 X10*3/uL (160-400); Red Blood Count 4.16 X10*6/uL (4.20-5.50); Red Cell Distribution Width 12.3 % (11.0-16.0); White Blood Count 8.7 X10*3/uL (4.8-10.8)
--- NOTE | 2024-07-15 06:58 | ED_ITS ---
HPI - Abdominal Pain General Chief Complaint: Abdominal Pain Stated Complaint: lower abdominal Time Seen by Provider: 07/15/24 06:56 Source: patient and old records reviewed Mode of arrival: ambulatory Limitations: no limitations History of Present Illness ED Provider: HAYLIE CISNEROS narrative: 29 year old female with PMHx of kidney stones presents to the ED due to left flank pain. She states she woke up from sleep around 3am due to sharp pain in her left flank area accompanied by nausea. She states she presented to the ED a few years ago where they found 2 stones. She reports her pain today is similar to her kidney stone pain in the past. She states she tried to move her bowels but that did not have any effect on her pain, and has not vomited. She denies recent sick contacts, chest pain, SOB, fever, bloody/bilious vomiting, black or tarry stools, diarrhea. MD elicited complaint: flank pain (left sided) Pertinent past history: kidney stones Onset (ago): hour(s) (4 ) Pain Consistency: constant Location: L flank Severity: moderate Quality: stabbing and sharp Radiation: none Migration to: no migration Exacerbating factors: nothing Relieving factors: nothing Associated symptoms: nausea Related Data Previous Rx's ?Medication ?Instructions ?Recorded cefpodoxime 200 mg tablet 200 mg PO Q12H 10 days #20 tabs 07/05/21 ketorolac 10 mg tablet 10 mg PO TID pain 5 days #15 tabs 07/05/21 cyclobenzaprine 10 mg tablet 10 mg PO TID PRN muscle spasm #20 07/15/24 tabs ketorolac 10 mg tablet 10 mg PO TID PRN pain 5 days #15 07/15/24 tabs ondansetron 4 mg disintegrating 4 mg PO Q8H PRN nausea and 07/15/24 tablet vomiting #20 tabs Allergies Allergy/AdvReac Type Severity Reaction Status Date / Time No Known Allergies Allergy Verified 07/15/24 06:13 [No Known Allergies*] Review of Systems Review of Systems Constitutional : No Weight loss, No Fever, No Chills ENT/Mouth : No sore throat, No Rhinorrhea Eyes: No Swelling, No Redness Cardiovascular : No Chest Pain, No SOB, NoEdema Respiratory : No Cough, No Sputum, No Wheezing Gastrointestinal : Positive Nausea, positive L flank pain, no Vomiting, no Diarrhea, No Hematochezia, No Melena Genitourinary : No Dysuria, No Urinary Frequency, No Hematuria, No Urgency Musculoskeletal : No joint pain, No Myalgias, No Joint Swelling Skin : No Skin Lesions, No rash Neuro : No Weakness, No Numbness, No Dizziness, No Headache Psych : No Anxiety/Panic, No Depression Heme/Lymph: No Bruising, No Lymphadenopathy Endocrine : No Polyuria, No Polydipsia All other systems reviewed and are negative. [facility] Past Medical History Attestation statement: The following information was validated with the patient. Source: old records reviewed Medical History No known health problems Social History Social History Alcohol intake: never Patient Tobacco Use Status: Never used Tobacco Advance Directives: No Advance Directives Information Provided: Yes Patient : No Physical Exam ED Vital Signs: Vital Signs - 24 hr 07/15/24 05:51 07/15/24 06:10 07/15/24 09:59 Temperature 98.7 F 97.8 F Pulse Rate 74 56 Respiratory Rate 22 H 16 Blood Pressure 138/86 138/86 97/49 L Pulse Oximetry 98 98 Oxygen Delivery Method Room Air Room Air Room Air BMI result Body Mass Index 37.6 Appearance: Alert. Oriented X3. In pain pacing around mild acute distress. Eyes: Pupils equal, round and reactive to light. ENT: Pharynx normal. Neck: Normal inspection. Neck supple. CVS: Normal heart rate and rhythm. Pulses normal. Respiratory: No respiratory distress. Breath sounds normal. Abdomen: Soft and non-distended. positive L sided CVA tenderness to percussion Skin: Skin warm and dry. Normal skin color. Normal skin turgor. Extremities: No lower extremity edema. No calf ttp Neuro: Oriented X 3. No motor deficit. No sensory deficit. CN2-12 intact Course Course Course Narrative: CT scan unremarkable will obtain US of L ovarian cyst Medical Decision Making Medical Decision Making MDM Narrative: 29 year old female with PMHx of kidney stones presents to the ED due to left flank pain. She states she woke up from sleep around 3am due to sharp pain in her left flank area she has remote hx of stones - she appears very uncomfortable. She went to bed normal. At this time will need basic labs, UA, CT scan for renal colic, IVF and IV dilaudid/toradol for pain. Differential Diagnosis Differential Diagnoses: The differential diagnosis associated with the presentation includes renal colic, back strain, constipation Admission/Observation Consideration of admission/observation: Escalation of care including admission/observation considered feels better stable for DC could have been passed stone vs flank pain no signs of UTI will wait on culture stable for DC feels better pain controlled Lab Data MDM Lab Attestation statement: I reviewed the patient's lab results. 07/15/24 06:29 07/15/24 06:29 Labs: Lab Results 07/15/24 07/15/24 Range/Units 05:52 06:29 WBC 8.7 (4.8-10.8) X10*3/uL RBC 4.16 L (4.20-5.50) X10*6/uL Hgb 13.5 (12.0-16.0) g/dl Hct 38.8 (37.0-47.0) % MCV 93.3 (80.0-98.0) fL MCH 32.5 (27.0-33.0) pg MCHC 34.8 (31.0-35.0) g/dl RDW 12.3 (11.0-16.0) % Plt Count 316 (160-400) X10*3/uL MPV 10.6 (9.4-12.3) fL Immature Gran % (Auto) 0.2 (0.0-0.4) % Neut % (Auto) 63.5 (45-73) % Lymph % (Auto) 27.9 (20-40) % Randolph % (Auto) 6.6 (2-11) % Eos % (Auto) 1.5 (0-4) % Baso % (Auto) 0.3 (0-2) % Lymph # (Auto) 2.4 (1.2-4.9) X10*3/uL Randolph # (Auto) 0.6 (0.1-1.2) X10*3/uL Eos # (Auto) 0.1 (0.0-0.4) X10*3/uL Baso # (Auto) 0.0 (0.0-0.2) X10*3/uL Abs Immat Gran (auto) 0.02 (0.00-0.03) X10*3/uL Absolute Neuts (auto) 5.5 (2.0-8.3) x10*3/uL Absolute Nucleated RBC 0.000 (0.0-0.012) X10*3/uL Nucleated RBC % (auto) 0.0 (0.0-0.2) /100WBC Sodium 139 (135-145) mmol/L Potassium 3.6 (3.3-5.1) mmol/L Chloride 105 (96-108) mmol/L Carbon Dioxide 23 (22-29) mmol/L Anion Gap 15 (12-20) BUN 15 (9-16) mg/dL Creatinine 0.65 (0.5-1.4) mg/dL Estim Creat Clear Calc 159.4 Estimated GFR > 60 Random Glucose 100 (60-115) mg/dL Calcium 8.8 D (8.4-10.2) mg/dL Total Bilirubin 1.0 (0.0-1.0) mg/dL AST 22 (5-31) U/L ALT 23 (0-31) U/L Alkaline Phosphatase 54 (39-117) U/L Total Protein 7.5 (6.5-8.0) g/dL Albumin 4.2 (3.5-5.0) g/dL Lipase 18 (8-78) U/L Urine Color Yellow Urine Appearance Clear Urine pH 5.0 (5.0-9.0) Ur Specific [place] >= 1.030 H (1.005-1.025) Urine Protein Negative (Neg-Trace) mg/dL Urine Glucose (UA) Negative (Negative) mg/dL Urine Ketones Negative (Negative) mg/dL Urine Blood Large (3+) H (Negative) Urine Nitrite Negative (Negative) Ur Leukocyte Esterase Trace H (Negative) Urine RBC 11-20 H (0-2) /HPF Urine WBC 21-50 H (0-5) /HPF Ur Squamous Epith Cells 3-5 (0-2) /HPF Urine Bacteria 1+ (None Seen) Hyaline Casts 0-2 (0-2) /LPF Urine Test NEGATIVE (NEGATIVE) Independent Interpretation I performed an independent interpretation of an: Ultrasound (no cause of L sided pain) and CT Scan (normal ) Radiology Impression Discussion of test interpretation with radiology: I have reviewed the radiologist's reading. External Record Review External record reviewed: Outpatient record Prescription Management I considered prescription management with: Pain Medication and Other Medications Administered Discontinued Medications Generic Name Dose Route Start Last Admin Trade Name Yimi PRN Reason Stop Dose Admin Hydromorphone HCl 0.5 mg 07/15/24 07:09 07/15/24 07:22 Hydromorphone Hcl 0.5 Mg/0.5 Ml Syringe IVPUSH 07/15/24 07:10 0.5 mg ONCE ONE Administration Protocol Lactated Ringer's 1,000 mls @ 999 mls/hr 07/15/24 07:15 07/15/24 09:31 Lr IV 07/15/24 08:15 Infused .Q1H1M HADLEY Infusion Ketorolac Tromethamine 15 mg 07/15/24 07:09 07/15/24 07:22 Ketorolac Tromethamine 15 Mg/Ml Vial IVPUSH 07/15/24 07:10 15 mg ONCE ONE Administration Ondansetron HCl 4 mg 07/15/24 07:09 07/15/24 07:22 Ondansetron Hcl 4 Mg/2 Ml Vial IVPUSH 07/15/24 07:10 4 mg ONCE ONE Administration Discharge Plan Discharge Clinical Impression: Acute flank pain, Ovarian cyst Patient Disposition: Home, Self-Care Instructions: Ovarian Cyst (ED), Abdominal Pain (ED), Flank Pain (ED) Additional Instructions: labs, urine reassuring no acute findings on CT scan US shows stable R ovarian cyst you need to repeat Ultrasound of R ovarian cyst return for worsening pain, fevers, unable to eat or drink or any other concerns US/US pelvic ovarian doppler IMPRESSION: 1. There is no evidence of ovarian torsion. 2. There is an isoechoic right intraovarian oval mass measuring 2.3 x 2.3 x 2.5 cm, minimally larger from the previous pelvic ultrasound (measured 1.8 x 2.2 x 1.8 cm) and most likely benign given slow interval growth. Differential includes ovarian fibroma or thecoma. Correlation with pelvic MRI may be of benefit for confirmation. 3. There is a simple follicular cyst in the left ovary measuring 3.7 x 3.2 x 3.5 cm. 4. Normal-appearing uterus and endometrium. No free fluid. You were found to have an ovarian cyst today on your work up. Sometimes these can cause pain and if they rupture the fluid inside of them can cause abdominal pain. It is important you monitor yourself and seek medical care for worsening pain, fevers over 100.4, unable to eat or drinking, fainting / dizziness or any other concerns. For the next few days if you are having persistent pain please take pain medications as prescribed. Rest and stay hydrated. Pelvic rest such as refraining from intercourse is advised when you are having pain. It is important you follow up with your OBGYN or primary care doctor to monitor your symptoms and repeat an ultrasound in 4 weeks. If you do not have an OBGYN please see the list below. [facility] [address] [phone] [facility] [address] [phone] [facility] [place] [phone] Prescriptions: New cyclobenzaprine 10 mg tablet 10 mg PO TID PRN (Reason: muscle spasm) Qty: 20 0RF ketorolac 10 mg tablet 10 mg PO TID PRN (Reason: pain) 5 Days Qty: 15 0RF Rx Instructions: given IV toradol in department ondansetron 4 mg tablet,disintegrating 4 mg PO Q8H PRN (Reason: nausea and vomiting) Qty: 20 0RF No Action cefpodoxime 200 mg tablet 200 mg PO Q12H 10 Days Qty: 20 0RF Rx Instructions: must administer with a meal/food ketorolac 10 mg tablet 10 mg PO TID 5 Days Qty: 15 0RF Stand Alone Forms: Work/School Release Print Language: Algerian
[2024-07-15 07:12] LABS: Alanine Aminotransferase 23 U/L (0-31); Albumin Level 4.2 g/dL (3.5-5.0); Alkaline Phosphatase 54 U/L (39-117); Anion Gap 15 (12-20); Aspartate Amino Transferase 22 U/L (5-31); Blood Urea Nitrogen 15 mg/dL (9-16); Calcium 8.8 mg/dL (8.4-10.2); Carbon Dioxide 23 mmol/L (22-29); Chloride 105 mmol/L (96-108); Creatinine Clr Calc Pharmacy 159.4; Estimated Glomerular Filt Rate > 60; Glucose Random 100 mg/dL (60-115); Lipase 18 U/L (8-78); Potassium 3.6 mmol/L (3.3-5.1); Sodium 139 mmol/L (135-145); Total Protein 7.5 g/dL (6.5-8.0)
[2024-07-15] MEDS: ondansetron HCL 4 MG/2 ML VIAL IVPUSH (07:22)
[2024-07-15] MEDS: Ketorolac Tromethamine 15 MG/ML VIAL IVPUSH (07:22)
[2024-07-15] MEDS: HYDROmorphone HCl 0.5 MG/0.5 ML SYRINGE IVPUSH (07:22)
[2024-07-15] MEDS: Lactated Ringers 1,000 ML 999 ML IV (07:27)
[2024-07-15 09:59] VITALS: BP 97/49; PULSE 56; RESP 16; TEMP 36.6; O2SAT 98
[2024-07-15 12:32] VITALS: BP 92/55; PULSE 57; RESP 16; TEMP 36.6; O2SAT 98
== END 2024-07-15 12:35 | disposition home or self-care (01) ==
PROVIDERS: Emergency Provider Emergency Medicine
DX: R10.9 Unspecified abdominal pain (principal); N83.202 Unspecified ovarian cyst, left side
CPT/HCPCS: 36415; 74176; 76830; 76856; 80053; 81001; 81025; 83690; 85025; 87086; 87088; 87186; 93975; 96361; 96374; 96375; 99284; 99285; J1171; J1885; J2405; J7120

== ENCOUNTER → 2024-07-15 07:10 | Outpatient (BNV) | payer MEDICAID, SELFPAY | PROVIDERS: Emergency Provider Emergency Medicine; Visit Provider Radiology Diagnostic Radiology | DX: N83.291 Other ovarian cyst, right side (principal); N83.292 Other ovarian cyst, left side; K76.0 Fatty (change of) liver, not elsewhere classified; K44.9 Diaphragmatic hernia without obstruction or gangrene | CPT/HCPCS: 74176; 76830; 76856; 93975 ==

== ENCOUNTER 2024-10-17 16:43 | Outpatient (REF) | payer MEDICAID, SELFPAY ==
--- OUTSIDE RECORDS SUMMARY | 2024-10-17 16:46 | XMS_ITS | Clinical Summary ---
Author Organization [facility] it Address [address] [place] [address] Care Team Providers Care Hospice Social Worker Name Role Phone Unavailable Primary Care Provider [...] 19+ 3-dose series) 03/19/2017 02/19/2017 COVID-19 Vaccine ( - 2023-2 5 season) 2023 Depression Screening 03/16/2024 Influenza Vaccine (#1) 2024 DTaP,Tdap,and Td Vaccines (2 - Td [...] 5 Years) and At-Risk Patients (6 to 49 Years) Aged Out No longer eligi ble based on patient's age to complete this topic RSV Immunization Patients Un anastacio 20 months Aged Out No longer eligible b ased on patient's age to complete this topic Varicella Vaccines Aged Out No longer eligible based on patient's age to complete this topic
--- OUTSIDE RECORDS SUMMARY | 2024-10-17 16:46 | XMS_ITS | Clinical Summary ---
Author Organization [facility] [employer] [facility] Address [address] [place] [address] Care Team Providers Care Job Counselor Name Role Phone Kallie Jordan NP Primary Care Provider [phone] Allergies No known active allergies Medications nitrofurantoin , macrocrystal-m onohydrate, (Macrobid) 100 MG capsule Take 1 capsule (100 mg) by mouth 2 times daily for 7 days. 14 capsule 5 10/25/19 25 Active omeprazole OTC (PriLOSEC OTC) 20 MG EC tablet Take 1 tablet (20 mg) by mouth before breakfast. Do not crush, chew, or split. 30 tablet 11 3 10/18/19 25 Discontin ued(Thera py completed ) Arleen 30 MG tablet TAKE 1 TABLET SOON POSSIBLE WITHIN 5 DAYS AFTER UNPROTECTED SEX OR IF YOU HAD A CONTROL FAILURE. MAY BE TAKEN WITH OR WITHOUT FOOD. 3 10/18/19 25 Discontin ued(Thera py completed ) Sod Fluoride-Potas sium Nitrate 1.1-5 % paste [place] teeth for 2 minutes, morning and night. Spit, do not rinse. Do not eat or drink anything for 30 minutes following brushing. 112 g 3 4 10/18/19 25 Discontin ued(Thera py completed ) Active Problems Problem Noted Date Diagnosed Date Dysuria 10/17/2024 Acute cystitis without hematuria 10/17/2024 Exercise counseling 10/17/2024 Assessment & Plan (10/17/2024 2:32 PM EDT): Dietary Recommendations: Fruits, vegetables, whole grains, protein foods, and fat-free or low-fat dairy products are healthy choices. Eat different types of protein foods in your diet. This can include seafood, lean meats, poultry, beans, peas, lentils, nuts, seeds, soy products, and eggs. Limit foods and beverages higher in added sugars, saturated fat, and sodium. Exercise Recommendations: At least 150 minutes of moderate-intensity physical activity per week, or an equivalent combination of moderate- and vigorous-intensity activity Obesity (BMI 35.0-39.9 without comorbidity) 06/2024 Assessment & Plan (10/17/2024 2:41 PM EDT): Substitute grapes, apples (fruit) for candy Continue walking Check in 2- 3 months Dental caries 07/15/2023 Dental calculus 07/15/2023 Periodontal disease 07/15/2023 Gingival bleeding 07/15/2023 Myopia 10/13/2021 Encounters Date Type Department Care Team Description 10/17/2024 2:00 PM EDT Office Visit [facility] [address] [place] [phone] Kallie Jordan NP Dysuria (Primary Dx); Acute cystitis without hematuria; Dietary counseling; Exercise counseling; Obesity (BMI 35.0-39.9 without comorbidity) 10/17/2024 Travel 10/14/2024 Telephone [facility] [address] [place] [phone] Monica Richardson MA CHARTPREP 10/10/2024 Patient Outreach [facility] [address] [place] [address] Kallie Jordan NP Pre-visit Planning (SDOH negative, Tobacco screening negative. ) 09/07/2024 Telephone [facility] [address] [place] [phone] Kallie Jordan NP 08/05/2024 10:30 AM EDT Office Visit [facility] [address] [place] [phone] Connor Duque DDS Dental caries (Primary Dx) 07/20/2024 Telephone [facility] [address], [place] [phone] Monica Richardson MA TP appointment 07/18/2024 Telephone [facility] [address] [place] [address] Kallie Jordan NP Appointment Request from Last 3 Months Immunizations Immunization Administration Dates Next Due Hep B, adult 02/19/2017 Moderna Covid-19 Vaccine 12+ 12/25/2020,11/21/19 21 Tdap 08/19/2016 Family History Medical History Relation Name Comments Diabetes Paternal Grandmother Relation Name Status Comments Paternal Grandmother Social History Tobacco Use Types Packs/Day Years Used Date Smoking Tobacco: Never Passive Smoke Exposure: Never Smokeless Tobacco: Never Tobacco Cessation:Counseling Given: Not Answered Alcohol Answer Date Recorded How often do you have a drink containing alcohol ? 4 10/17/2024 How many drinks containing a lcohol do you have on a typical day when you are drinking? 0 10/17/2024 How often do you have six or more drinks on one occasion? 2 10/17/2024 Depression Answer Date Recorded Patient Health Questionnaire-9 Score 4 10/17/2024 Patient Health Questionnaire-9 Score 4 10/17/2024 Last PHQ-9: Questionnaire Data Not on file 0 10/17/2024 Housing Stability Answer Date Recorded What is your housing situation today? I have diomedes rodriguez 10/10/[address] you li ve. Do you have problems with any of the following? None of the above 10/10/2024 Food Insecurity Answer Date Recorded Within the past 12 months, y ou worried that your food would run out before you got money to buy more: Never True 10/10/2024 Within the past 12 months,th e food you bought just didn't last and you didn't have enough money to get more: Never True Transportation Answer Date Recorded In the past 12 months, has l ack of transportation kept you from medical appts, meetings, work or from getting things needed for daily living? No 10/10/2024 Utilities Answer Date Recorded In the past 12 months, has t he electric, gas, oil or water company threatened to shut off services in your home? No 10/10/2024 Depression Answer Date Recorded Patient Health Questionnaire-2 Score 0 10/17/2024 Internet Access Answer Date Recorded Internet Access Q1 No 10/17/2024 Internet Access Q2 Not on file 10/17/2024 Comments Unknown Sex and Gender Information Value Date Recorded Sex Assigned at Female 01/13/2022 10:40 AM EDT Legal Sex Female 10:40 AM EDT Gender Identity Female 01/13/2022 10:40 AM EDT Sexual Orientation Straight 01/13/2022 10 :40 AM EDT Last Filed Vital Signs Vital Sign Reading Time Taken Comments Blood Pressure 122/80 10/17/2024 2:10 PM EDT Pulse 76 10/17/2024 2:10 PM EDT Temperature 35.8 C (96.4 F) 10/17/2024 2:10 PM EDT Respiratory Rate 16 10/17/2024 2:10 PM EDT Oxygen Saturation 98% 10/17/2024 2:10 PM EDT Inhaled Oxygen Concentration - - Weight 112 kg (246 lb 6.4 oz) 10/17/2024 2:10 PM EDT Height 170.2 cm (5' 7 ) 10/17/2024 2:10 PM EDT Body Mass Index 38.59 10/17/2024 2:10 PM EDT Plan of Treatment Upcoming Encounters Date Type Department Care Team (Late st Contact Info) Description 11/25/2024 10:00 AM EDT Office Visit [facility] [address] [place] [phone] Devan Cancinoaris [address] [place] [address] 12/19/2024 1:45 PM EDT Office Visit [facility] [address] [place] [address] Kallie Jordan NP [address] [place] [address] Health Maintenance Due Date Last Done Comments Family Planning (PISQ) 2008 HPV Vaccines (1 - 3-dose series) 2008 Pap Smear 2014 Hepatitis B Vaccines (2 of 3 - 19+ 3-dose series) 03/19/2017 02/19/2017 Cervical Cancer Screening 05/21/2023 HPV/Cotest 05/21/2023 Dental Oral Exam 11/05/2023 05/06/2023 COVID-19 Vaccine (3 - 2023-2 5 season) 2023 12/25/2020, 11/20/2020 Dental X-Ray: Bitewings 08/21/2024 08/21/19 24, 05/06/2023 Influenza Vaccine (#1) 2024 Dental Prophylaxis 11/21/2024 2024, 07/15/2023 Alcohol/Substance Use Screening 10/17/2025 10/17/2024 Depression Screening 10/17/2025 10/17/2024, 10/17/2024 Disability Screening 10/17/2025 10/17/2024 SDOH Screening 10/17/2025 10/17/2024 Tobacco Screening 10/17/2025 10/17/2024 Dental X-Ray: Full Mouth 05/07/2026 05/06/2023 DTaP/Tdap/Td Vaccines (2 - T d or Tdap) 08/19/2026 08/19/2016 Lipid Panel 10/11/2026 10/11/2021 Zoster Vaccines (1 of 2) 05/21/2043 RSV [...] Years) and At-Risk Patients (6 to 49) Years Aged Out No longer eligible b ased on patient's age to complete this topic RSV under 20 months Aged Out No longe r eligible based on patient's age to complete this topic Rotavirus Vaccines Aged Out No longer eligible based on patient's age to complete this topic Procedures Procedure Name Priority Date/Time Associated Diagnosis Comments POCT URINALYSIS DIPSTICK Routine 10/17/2024 3:24 PM EDT Dysuria CASE PRESENTATION, DETAILED AND EXTENSIVE TREATMENT PLANNING Routine 08/05/2024 10:30 AM EDT 16 O RESIN-BASED COMPOSITE - 1 SURF, POSTERIOR Routine 08/05/2024 10:30 AM EDT 15 DO RESIN-BASED COMPOSITE - 2 SURF, POSTERIOR Routine 08/05/2024 10:30 AM EDT 14 L RESIN-BASED COMPOSITE - 1 SURF, POSTERIOR Routine 08/05/2024 10:30 AM EDT PROPHYLAXIS - ADULT Routine 2024 9 :00 AM EST Periodontal disease Dental calculus Gingival bleeding BITEWINGS - 4 RADIOGRAPHIC IMAGES Routine 08/21/2023 [...] GENERATION W/RFL Routine 10/11/2021 9:58 AM EDT LIPID PANEL, STANDARD Routine 10/11/2021 9:58 AM EDT from Last 3 Months or Most Recently Relevant to Health Maintenance Results * (ABNORMAL) POCT Urinalysis (10/17/2024 3:24 PM EDT) Color, UA Yellow Comment:dark yellow Clarity, UA Cloudy Glucose, UA Negative Bilirubin, UA Negative Ketones, UA Negative Spec Grav, UA 1.025 Blood, UA Positive(A) Negative, None Detected pH, UA 7.0 Protein, UA Negative Urobilinogen, UA 1.0 Leukocytes, UA Trace Negative, Rare, Trace Nitrite, UA Positive(A) Negative, None Detected Appearance, UA clowdy QC Media Lot # [id number] Lot# Expiration Date Urine 10/17/2024 3:24 PM EDT Kallie Julian ATKINSON POINT OF CARE TEST ENTER/EDIT OR DERABLES Final Result * HEPATITIS C AB W/REFL TO HCV RNA, QN, PCR (10/11/2021 9:58 AM EDT) HEPATITIS C ANTIBODY NON-REACT VERO NON-REACT VERO [facility] INDEX 0.19 <1.00 [facility] Comment: HCV antibody was non-reactive. There is no laboratory evidence of HCV infection. In most cases, no further action is required. However, if recent HCV exposure is suspected, a test for HCV RNA (test code 04546) is suggested. For additional information please refer to http://[employer]/faq/GRE71j0 (This link is being provided for informational/ educational purposes only.) 10/11/2021 9:58 AM EDT aRndi Artis RELEASE COORDINATOR HISTORICAL/NON ORDERABLE L ABS Final Result [facility] [address] * HIV 1/2 ANTIGEN/ANTIBODY,FOURTH GENERATION W/RFL (10/11/2021 9:58 AM EDT) HIV-1/2 ANTIGEN AND ANTIBODIES, 4TH GENERATION W/ REFLEX NON-REACT VERO NON-REACT VERO [facility] Comment: HIV-1 antigen and HIV-1/HIV-2 antibodies were not detected. There is no laboratory evidence of HIV infection. PLEASE NOTE: This information has been disclosed to you from records whose confidentiality may be protected by state law. If your state requires such protection, then the state law prohibits you from making any further disclosure of the information without the specific written consent of the person to whom it pertains, or as otherwise permitted by law. A general authorization for the release of medical or other information is NOT sufficient for this purpose. For additional information please refer to http://[employer]/faq/UKC520 (This link is being provided for informational/ educational purposes only.) The performance of this assay has not been clinically validated in patients less than 2 years old. 10/11/2021 9:[address] [facility] LAB BLOOD ORDERABLES Final Result Performing Organization Address [facility] Phone Number [facility] [address] * LIPID PANEL, STANDARD (10/11/2021 9:58 AM EDT) Chol/HDLC Ratio 2.9 <5.0 (calc) [facility] Cholesterol, Total 153 <200 mg/dL [facility] HDL Cholesterol 53 > OR = 50 mg/dL [facility] LDL Cholesterol 79 mg/dL (calc) [facility] Comment: Reference range: <100 Desirable range <100 mg/dL for primary prevention; <70 mg/dL for patients with CHD or diabetic patients with > or = 2 CHD risk factors. LDL-C is now calculated using the Kayode-Esther calculation, which is a validated novel method providing better accuracy than the Friedewald equation in the estimation of LDL-C. Kayode SS et al. PINO. 2013;310(19): 8638-8365 (http://education.[employer]/faq/TII974) Non-HDL Cholesterol 100 <130 mg/dL (calc) [facility] Comment: For patients with diabetes plus 1 major ASCVD risk factor, treating to a non-HDL-C goal of <100 mg/dL (LDL-C of <70 mg/dL) is considered a therapeutic option. Triglycerides 116 <150 mg/dL [facility] 10/11/2021 9:[address] [facility] LAB BLOOD ORDERABLES Final Result Performing Organization Address [facility] Co de Phone Number [facility] [address] from Last 3 Months or Most Recently Relevant to Health Maintenance Insurance * Guarantor: Nati Rm I Account Type Relation to Patient Date of Phone Billing Address Personal/Family Self [address] Care Teams Job Counselor Relationship Specialty Start Date End Date Kallie Jordan NP [address] [place] [address] PCP - General Family Medicine 04/22/23
[2024-10-18 11:09] LABS: CT PCR NOT DETECTED (Not Detect.); NG PCR NOT DETECTED (Not Detect.)
== END 2024-10-17 16:44 | disposition home or self-care (01) ==
LOC: HO.HHCLNP 16:43
PROVIDERS: Visit Provider Nurse Practitioner Family
DX: Z11.8 Encounter for screening for other infectious and parasitic diseases (principal); R30.0 Dysuria; Z11.3 Encounter for screening for infections with a predominantly sexual mode of transmission
CPT/HCPCS: 87086; 87088; 87186; 87491; 87591

== ENCOUNTER 2024-12-29 10:52 | Outpatient (REF) | payer MEDICAID, SELFPAY ==
--- OUTSIDE RECORDS SUMMARY | 2024-12-29 13:43 | XMS_ITS | Clinical Summary ---
Author Organization [employer] Address [address] [place] [address] [address] [place] [address] Care Team Providers Care Plasma Table Operator Name Role Phone Kallie Jordan NP Primary Care Provider [phone] Allergies No known active allergies Medications phentermine 15 MG capsule Take 1 capsule (15 mg) by mouth before breakfast. 30 capsule 12/19/2024 Active Active Problems Problem Noted Date Diagnosed Date Class 2 obesity with body ma ss index (BMI) of 35.0 to 35.9 in adult 12/19/2024 Assessment & Plan (12/19/2024 5:56 PM EDT): Orders: Referral to Nutrition Services, Internal; Future Hemoglobin A1c; Future Comprehensive Metabolic Panel; Future TSH; Future Dysuria 10/17/2024 Acute cystitis without hematuria 10/17/2024 [...] Encounters Date Type Department Care Team Description 12/19/2024 1:45 PM EDT Office Visit [address] [address] Kallie Jordan NP Class 2 obesity with body mass index (BMI) of 35.0 to 35.9 in adult, unspecified obesity type, unspecified whether serious comorbidity present (Primary Dx) 12/19/2024 Travel 12/16/[address] [address] Joyce Garcia MA chart prep 11/18/2024 Results Follow-Up [address] [address] Janell Figueroa RN Pelvis Transvaginal 10/20/2024 Results Follow-Up [address] [address] Ann Vergara RN Chlamydia/N. Gonorrhoeae RNA, TMA, Vaginal, Culture, Urine, Routine, POCT Urinalysis 10/17/2024 2:00 PM EDT Office Visit [address] [address] Kallie Jordan NP Dysuria (Primary Dx); Acute cystitis without hematuria; Dietary counseling; Exercise counseling; Obesity (BMI 35.0-39.9 without comorbidity) 10/17/2024 Travel 10/14/[address] [address] Monica Richardson MA CHARTPREP 10/10/2024 Patient Outreach [facility] [address] [place] [address] Kallie Jordan NP Pre-visit Planning (SDOH negative, Tobacco screening negative. ) from Last 3 Months Immunizations Immunization Administration [...] Access Q2 Not on file 10/17/2024 Comments No Sex and Gender Information Value Date Recorded Sex Assigned at Female 01/13/2022 10:40 AM EDT Legal Sex Female 10:40 AM EDT Gender Identity Female 01/13/2022 10:40 AM EDT Sexual Orientation Straight 01/13/2022 10 :40 AM EDT Last Filed Vital Signs Vital Sign Reading Time Taken Comments Blood Pressure 118/82 12/19/2024 2:02 PM EDT Pulse 80 12/19/2024 2:02 PM EDT Temperature 36.2 C (97.2 F) 12/19/2024 2:02 PM EDT Respiratory Rate 14 12/19/2024 2:02 PM EDT Oxygen Saturation 96% 12/19/2024 2:02 PM EDT Inhaled Oxygen Concentration - - Weight 114 kg (251 lb 6.4 oz) 12/19/2024 2:02 PM EDT Height 170.2 cm (5' 7 ) 12/19/2024 2:02 PM EDT Body Mass Index 39.37 12/19/2024 2:02 PM EDT Plan of Treatment Upcoming Encounters Date Type Department Care Team (Late st Contact Info) Description 02/20/2025 1:45 PM EST Office Visit [facility] [address] [place], [place] [phone] Kallie Jordan NP [address] [place] [address] Health Maintenance Due Date Last Done Comments Family Planning (PISQ) 2008 HPV Vaccines (1 - 3-dose series) 2008 Pap Smear 2014 Hepatitis B Vaccines (2 of 3 - 19+ 3-dose series) 03/19/2017 02/19/2017 Cervical Cancer Screening 05/21/2023 HPV/Cotest 05/21/2023 Dental Oral Exam 11/05/2023 05/06/2023 Dental X-Ray: Bitewings 08/21/2024 08/21/19 24, 05/06/2023 COVID-19 Vaccine (3 - 2024-2 6 season) 2024 12/25/2020, 11/20/2020 Influenza Vaccine (#1) 2024 Dental Prophylaxis 11/21/2024 2024, 07/15/2023 Alcohol/Substance Use Screening 10/17/2025 10/17/2024 Depression Screening 10/17/2025 10/17/2024, 10/17/2024 Disability Screening 10/17/2025 10/17/2024 SDOH Screening 10/17/2025 10/17/2024 Tobacco Screening 12/19/2025 12/19/2024 Dental X-Ray: Full Mouth 05/07/2026 05/06/2023 DTaP/Tdap/Td [...] DIPSTICK Routine 10/17/2024 3:24 PM EDT Dysuria CULTURE, URINE, ROUTINE Routine 10/17/2024 2:45 PM EDT Dysuria CHLAMYDIA/N. GONORRHOEAE RNA, TMA, UROGENITAL Routine 10/17/2024 2:33 PM EDT Dysuria PROPHYLAXIS - ADULT Routine 2024 9 :00 [...] Expiration Date Urine 10/17/2024 3:24 PM EDT us Kallie Jordan NP POINT OF CARE TEST ENTER/EDIT OR DERABLES Final Result * Culture, Urine, Routine (10/17/2024 2:45 PM EDT) Urine Urine specimen obtained by clean catch procedure / Unknown 10/17/2024 2:45 PM EDT 10/17/2024 4:47 PM EDT Comment:[facility] Narrative [facility] - 10/19/2024 7:50 AM EDT Citrobacter koseri Quant > 100,000 cfu/mL Citrobacter koseri: Cefazolin 2(S) Citrobacter koseri: Cefepime <=0.12(S) Citrobacter koseri: Ceftriaxone <=0.25(S) Citrobacter koseri: Ciprofloxacin <=0.06(S) Citrobacter koseri: Gentamicin <=1(S) Citrobacter koseri: Nitrofurantoin 32(S) Citrobacter koseri: Trimethoprim/Sulfamethoxazole <=20(S) Specimen Source: Urine clean catch us Kallie Jordan NP LAB MICROBIOLOGY - GENERAL ORDER KOLBY Final Result [facility] [address] [place] [address] [phone] * Chlamydia/N. Gonorrhoeae RNA, TMA, Vaginal (10/17/2024 2:33 PM EDT) Pathologist [facility] CT PCR NOT DETECTED Not Detect. [facility] Comment:A not detected test result does not exclude the possibilityof infection because test results can be affected byimproper specimen collection, concurrent antibiotic therapy,or the number of organisms in the specimen which may bebelow the sensitivity of the test. As with many diagnostictests, results from the Xpert CT/NG assay should beinterpreted in conjunction with other laboratory andclinical data available to the clinician.Xpert CT/NG performance has not been evaluated in patientsless than 14 years of age. The assay should not be used forthe evaluationof suspected sexual abuse or for other medico-legalindications. Additional testing is recommended in anycircumstance when false positive or false negative resultscould lead to adverse medical, social or psychologicalconsequences. NG PCR NOT DETECTED Not Detect. [facility] Comment:A not detected test result does not exclude the possibilityof infection because test results can be affected byimproper specimen collection, concurrent antibiotic therapy,or the number of organisms in the specimen which may bebelow the sensitivity of the test. As with many diagnostictests, results from the Xpert CT/NG assay should beinterpreted in conjunction with other laboratory andclinical data available to the clinician.Xpert CT/NG performance has not been evaluated in patientsless than 14 years of age. The assay should not be used forthe evaluationof suspected sexual abuse or for other medico-legalindications. Additional testing is recommended in anycircumstance when false positive or false negative resultscould lead to adverse medical, social or psychologicalconsequences. Swab Vaginal structure / Unknown 10/17/2024 2:33 PM EDT 10/17/2024 4:44 PM EDT us Kallie Jordan NITRILES LAB TECHNICIAN LAB MICROBIOLOGY - GENERAL ORDER KOLBY Final Result Performing Organization Address City/[facility]/ZIP Co de Phone Number [facility] [address] [place] [phone] * HEPATITIS C AB W/REFL TO HCV RNA, QN, PCR (10/11/2021 9:58 AM EDT) HEPATITIS C ANTIBODY NON-REACT VERO NON-REACT VERO [facility] INDEX 0.19 <1.00 [facility] Comment: HCV antibody was non-reactive. There is no laboratory evidence of HCV infection. In most cases, no further action is required. However, if recent HCV exposure is suspected, a test for HCV RNA (test code 07382) is suggested. For additional information please refer to http://education.Teramind/faq/CJK14c7 (This link is being provided for informational/ educational purposes only.) 10/11/2021 9:58 AM EDT us Randi Artis TALENT PROGRAM MANAGER HISTORICAL/NON ORDERABLE L ABS Final Result [facility] [address] * HIV 1/2 ANTIGEN/ANTIBODY,FOURTH GENERATION W/RFL (10/11/2021 9:58 AM EDT) HIV-1/2 ANTIGEN AND ANTIBODIES, 4TH GENERATION W/ REFLEX NON-REACT VERO NON-REACT VERO [facility] Comment: HIV-1 antigen and [...] purpose. For additional information please refer to http://Integrien.Teramind/faq/OZV573 (This link is being provided for informational/ educational purposes only.) The performance of this assay has not been clinically validated in patients less than 2 years old. 10/11/2021 9:58 AM EDT Randi Artis [facility] LAB BLOOD ORDERABLES Final Result Performing Organization Address City/State/[facility] Co de Phone Number [facility] [address] * LIPID PANEL, STANDARD (10/11/2021 9:58 AM EDT) Chol/HDLC Ratio 2.9 <5.0 (calc) [facility] Cholesterol, Total 153 <200 mg/dL [facility] HDL Cholesterol 53 > OR = 50 mg/dL [facility] LDL Cholesterol 79 mg/dL (calc) [facility] Comment: Reference range: <100 Desirable range <100 mg/dL for primary prevention; <70 mg/dL for patients with CHD or diabetic patients with > or = 2 CHD risk factors. LDL-C is now calculated using the Kayode-Esther calculation, which is a validated novel method providing better accuracy than the Friedewald equation in the estimation of LDL-C. Kayode WHEELER et al. PINO. 2013;310(19): 2020-6420 (http://education.CableOrganizer.com.Virtual Event Bags/faq/OVU979) Non-HDL Cholesterol 100 <130 mg/dL (calc) [facility] Comment: For patients with diabetes plus 1 major ASCVD risk factor, treating to a non-HDL-C goal of <100 mg/dL (LDL-C of <70 mg/dL) is considered a therapeutic option. Triglycerides 116 <150 mg/dL [facility] 10/11/2021 9:58 AM EDT us Randi Artis TALENT PROGRAM MANAGER LAB BLOOD ORDERABLES Final Result [facility] [address] from Last 3 Months or Most Recently Relevant to Health Maintenance Insurance [facility] C3 DENTAL-[facility] MEDICAID STAND ADULT Care Teams Plasma Table Operator Relationship Specialty Start Date End Date Kallie Jordan NP [address] [place] [phone] PCP - General Family Medicine 04/22/23
--- OUTSIDE RECORDS SUMMARY | 2024-12-29 13:43 | XMS_ITS | Clinical Summary ---
Author Organization [facility] ity Address [address] [place] [address] Care Team Providers Care Electric Motor Repair Supervisor Name Role Phone Unavailable Primary Care Provider [...] 3 - 19+ 3-dose series) 03/19/2017 02/19/2017 HPV Vaccines (1 - 3-dose SCD M series) 2020 Depression Screening 03/16/2024 COVID-19 Vaccine (1 - 2023-2 5 season) 2024 Influenza Vaccine (#1) 2024 DTaP,Tdap,and Td Vaccines (2 - Td or Tdap) 08/19/2026 08/19/2016 RSV Immunization Adult Patie nts (1 - 1-dose 75+ series) 2068 HIB Vaccines Aged Out No longer eligi [...]
--- OUTSIDE RECORDS SUMMARY | 2024-12-29 13:43 | XMS_ITS | Encounter Summary ---
Author Organization [employer] Address [address] [facility] [address] [place] [address] Care Team Providers Care Senior Supply Chain Analyst Name Role Phone Kallie Jordan NP Primary Care Provider [phone] Encounter Details Date Type Department Care Team (Latest Contact Info) Description 11/18/2024 Results Follow-Up [facility] [address] [place] [address] Janell Figueroa RN US Pelvis Transvaginal Social History Tobacco Use Types Packs/Day Years Used Date Smoking Tobacco: Never Passive Smoke Exposure: Never Smokeless Tobacco: Never Alcohol Answer Date Recorded How often do [...] AM EDT documented as of this encounter Miscellaneous Notes * Telephone Encounter - Janell Figueroa RN - 11/18/2024 11:50 AM EDT ----- Message from Kallie Jordan sent at 11/17/2024 5:13 PM EDT ----- Has pt seen residential energy auditor ? If not please encourage pt to do so ----- Message ----- From: Lisbet Hammond RN Sent: 07/18/2024 7:15 AM EDT To: Kallie Jordan NP ----- Message ----- From: Marilu, Ris Results In Sent: 07/15/2024 12:23 PM EDT To: [facility] Provider Pool * Telephone Encounter - Janell Figueroa RN - 11/18/2024 11:28 AM EDT Tc to pt via BLS ID: [id number] per PCP Has pt seen residential energy auditor ? If not please encourage pt to do so Pt reports the ultrasound that was done on 07/15/24 they had a small mass on their right ovary. Pt reports when they discussed the results with pt they told them it was benign and no signs of malignancy. Pt advised per PCP they strongly encourage pt to still see HOUSING COORDINATOR. Pt verbalized understanding and reports they will call them to schedule an appt. Message sent to PCP as any FYI. * Telephone Encounter - Janell Figueroa RN - 11/18/2024 11:22 AM EDT ----- Message from Kallie Jordan sent at 11/17/2024 5:13 PM EDT ----- Has pt seen residential energy auditor ? If not please encourage pt to do so ----- Message ----- From: Lisbet Hammond RN Sent: 07/18/2024 7:15 AM EDT To: Kallie Jordan NP ----- Message ----- From: Kathryn Michel Results In Sent: 07/15/2024 12:23 PM EDT To: [facility] Provider Pool documented in this encounter Plan of Treatment Upcoming Encounters Date Type Department Care Team (Late st Contact Info) Description 02/20/2025 1:45 PM EST Office Visit [facility] [address] [place] [address] Kallie Jordan NP [address] [place] [address] documented as of this encounter Visit Diagnoses Not on filedocumented in this encounter Additional Health Concerns Assessment Noted Time PHQ-9 Depression Total Score: 4 10/18/19 25 2:12 PM EDT documented as of this encounter Care Teams Senior Supply Chain Analyst Relationship Specialty Start Date End Date Kallie Jordan NP [address] [place] [address] PCP - General Family Medicine 04/22/23 documented as of this encounter
--- OUTSIDE RECORDS SUMMARY | 2024-12-29 13:43 | XMS_ITS | Encounter Summary ---
Author Organization [employer] Address [address] [place] [address] [address] [place] [address] Care Team Providers Care Manager Private Name Role Phone Kallie Jordan NP Primary Care Provider [phone] Reason for Visit * Reason Onset Date Comments Appointment Request 07/18/2024 Encounter Details Date Type Department Care Team ([facility] st Contact Info) Description 07/18/2024 Telephone [facility] [address] [place] [address] Kallie Jordan NP [address] [place] [address] Appointment Request Social History Tobacco Use Types Packs/Day Years [...] encounter Miscellaneous Notes * Telephone Encounter - Amanda Landis - 07/18/2024 1:17 PM EDT Tc from pt requesting transfer pt appointment with Kallie Jordan. documented in this encounter Plan of Treatment Upcoming Encounters Date Type Department Care Team (Late st Contact Info) Description 02/20/2025 1:45 PM EST Office Visit [facility] [address] [place] [address] Kallie Jordan NP [address] [place] [address] documented as of this encounter Visit Diagnoses Not on filedocumented in this encounter Care Teams Manager Private Relationship Specialty Start Date End Date Kallie Jordan NP [address] [place] [address] PCP - General Family Medicine 04/22/23 documented as of this encounter
[2024-12-29 14:12] LABS: Albumin Level 5.0 g/dL (3.5-5.0); Alkaline Phosphatase 52 U/L (39-117); Anion Gap 13 (12-20); Aspartate Amino Transferase 34 U/L (5-31); Blood Urea Nitrogen 15 mg/dL (9-16); Calcium 10.0 mg/dL (8.4-10.2); Carbon Dioxide 24 mmol/L (22-29); Chloride 105 mmol/L (96-108); Estimated Glomerular Filt Rate > 60; Potassium 3.9 mmol/L (3.3-5.1); Sodium 138 mmol/L (135-145); Total Protein 8.4 g/dL (6.5-8.0)
[2024-12-29 14:29] LABS: Thyroid Stimulating Hormone 1.38 uIU/mL (0.32-4.0)
[2024-12-29 14:36] LABS: Alanine Aminotransferase 42 U/L (0-31)
== END 2024-12-29 10:53 | disposition home or self-care (01) ==
LOC: HO.HHCL 10:52
PROVIDERS: PCP Nurse Practitioner Family; Visit Provider Nurse Practitioner Family
DX: E66.812 Obesity, class 2 (principal); Z68.35 Body mass index [BMI] 35.0-35.9, adult
CPT/HCPCS: 36415; 80053; 83036; 84443